=== PATIENT | male | born 1960 | race Caucasian/White ===

== ENCOUNTER 2017-05-17 09:38 | Emergency (ER) | payer OTHER ==
[~2017-05-17] VITALS: Ht 177.8 cm; Wt 99.8 kg
[~2017-05-17 09:38] MED LIST: ALLO100 PO; ALLO300 PO; Adult Low Dose81 MG PO; Advil200 M1 PO; BUPR150ER PO; CEPH500 PO; CHLO25 PO; CHOL10002 PO; COLCHICINE0.6 MG PO; COLCRYS0.6 MG PO; CYCL10 PO; FISH1000 PO; FLUO10 PO; GEMF600 PO; HEART MED; HEART PO; HTN MED; HYDACE10B PO; HYDACE5 PO; HYDR1TAB94 PO; INDO25 PO; LISI20 PO; LISI5; LISI5 PO; LORA1 PO; Levaquin500 MG PO; METO50 PO; METO50ER PO; METPRE4DP PO; NAPR500 PO; NAPR550 PO; Naproxen250 MG PO; Norco 10-325 T1 EACH PO; Norco 5-325 Ta1 EACH PO; Norco 7.5-3251 EACH PO; Oxycodone HCl20 M1 PO; POTCHL20ER PO; PROM25 PO; Percocet 5-3251 EACH PO; Prednisone10 MG PO; Prednisone20 MG PO; RANI150 PO; Robaxin-750750 MG PO; ZESTORETIC 20-121 EA; ZESTORETIC 20-121 EA PO; ZYRTEC10 M2 PO; Zantac150 MG PO
[2017-05-17] MEDS ORDERED: Celebrex200 MG PO (11:39)
[2017-05-17] MEDS ORDERED: Norco 5-325 Ta1 EACH PO (11:39)
[2017-05-17] MEDS ORDERED: Crutch1 EACH UD (11:40)
[2018-01-26] MEDS ORDERED: METPRE4DP PO (12:44)
[2018-01-26] MEDS ORDERED: Norco 5-325 Ta1 EACH PO (12:44)
[2018-01-26] MEDS ORDERED: NAPR500 PO (12:44)
== END 2017-05-17 11:47 | disposition home or self-care (01) ==
LOC: ER 09:38
DX: M10.9 Gout, unspecified (principal); Z88.8 Allergy status to other drugs, medicaments and biological substances; I10 Essential (primary) hypertension; Z87.891 Personal history of nicotine dependence
CPT/HCPCS: 73564; 96372; 99283; J1885

== ENCOUNTER 2017-06-21 10:07 | Emergency (ER) | payer OTHER ==
[~2017-06-21] VITALS: Ht 177.8 cm; Wt 105.9 kg
[~2017-06-21 10:07] MED LIST changes: +Celebrex200 MG PO; +Crutch1 EACH UD
[2017-06-21] MEDS ORDERED: Norco 5-325 Ta1 EACH PO (10:33)
[2017-06-21] MEDS ORDERED: Prednisone20 MG PO (10:33)
[2018-01-26] MEDS ORDERED: METPRE4DP PO (12:44)
[2018-01-26] MEDS ORDERED: NAPR500 PO (12:44)
[2018-01-26] MEDS ORDERED: Norco 5-325 Ta1 EACH PO (12:44)
== END 2017-06-21 10:47 | disposition home or self-care (01) ==
LOC: ER 10:07
DX: M19.012 Primary osteoarthritis, left shoulder (principal); I10 Essential (primary) hypertension; Z79.899 Other long term (current) drug therapy; Z87.891 Personal history of nicotine dependence
CPT/HCPCS: 99283

== ENCOUNTER → 2017-08-14 | Outpatient (CLI) | payer OTHER ==
[2017-08-14 09:05] LABS: BASOPHILS ABSOLUTE AUTO 0.05 K/mm3 (0.00-0.23); BASOPHILS PERCENT AUTO 1 % (0-2); EOSINOPHILS ABSOLUTE AUTO 0.07 K/mm3 (0.00-0.68); EOSINOPHILS PERCENT AUTO 1 % (0-6); Hemoglobin 15.5 g/dL (13.5-17.5); IMMATURE GRAN ABSOLUTE AUTO 0.03 K/mm3 (0.00-0.10); IMMATURE GRAN PERCENT AUTO 0 % (0-1); LYMPHOCYTES ABSOLUTE AUTO 1.84 K/mm3 (0.84-5.20); LYMPHOCYTES PERCENT AUTO 24 % (21-46); MONOCYTES PERCENT AUTO 13 % (4-13); Mean Corpuscular HGB 32.9 pg (26.0-34.0); Mean Corpuscular HGB Conc 33.7 g/dL (31.5-36.5); Mean Corpuscular Volume 98 fL (80-100); NEUTROPHILS ABSOLUTE AUTO 4.58 K/mm3 (1.96-9.15); NEUTROPHILS PERCENT AUTO 61 % (41-73); Platelet Count 144 K/mm3 (150-400); RDW Coefficient Variation 13.7 % (11.7-14.2); RDW Standard Deviation 49.1 fL (35.1-46.3); Red Blood Cell Count 4.71 M/mm3 (4.30-5.90); White Blood Cell Count 7.57 K/mm3 (4.00-11.30)
[2017-08-14 09:24] LABS: Alanine Aminotransfer (ALT/SGP 185 U/L (12-78); Albumin, Blood 3.9 g/dL (3.4-5.0); Alk Phos 59 U/L (40-126); Anion Gap 8 mmol/L (6-16); Aspartate Aminotrans (AST/SGOT 117 U/L (12-37); Blood Urea Nitrogen 10 mg/dL (8-24); Bun/Creatinine Ratio 9.3 (12.0-20.0); CO2, Blood 31 mmol/L (21-32); Calcium, Blood 9.9 mg/dL (8.5-10.1); Chloride, Blood 105 mmol/L (98-108); Creatinine, Blood 1.08 mg/dL (0.60-1.20); Globulin, Blood 3.8 g/dL (2.2-4.0); Glomerular Filtration Rate >60 (60-); Glucose, Blood 96 mg/dL (70-99); Sodium, Blood 144 mmol/L (136-145); Total Protein, Blood 7.7 g/dL (6.4-8.2); Uric Acid, Blood 9.7 mg/dL (3.5-7.2)
== END | disposition home or self-care (01) ==
LOC: LAB EV 09:01 → LAB SHORT 09:01
PROVIDERS: General Practice
DX: M25.562 Pain in left knee (principal)
CPT/HCPCS: 80053; 84550; 85025; 85651

== ENCOUNTER 2017-11-10 21:40 | Emergency (ER) | payer OTHER ==
[~2017-11-10] VITALS: Ht 180.3 cm; Wt 106.6 kg
[2017-11-10 22:53] LABS: BASOPHILS ABSOLUTE AUTO 0.02 K/mm3 (0.00-0.23); BASOPHILS PERCENT AUTO 0 % (0-2); EOSINOPHILS ABSOLUTE AUTO 0.18 K/mm3 (0.00-0.68); EOSINOPHILS PERCENT AUTO 3 % (0-6); Hematocrit 44.3 % (37.0-53.0); Hemoglobin 14.7 g/dL (13.5-17.5); IMMATURE GRAN ABSOLUTE AUTO 0.02 K/mm3 (0.00-0.10); IMMATURE GRAN PERCENT AUTO 0 % (0-1); LYMPHOCYTES ABSOLUTE AUTO 1.82 K/mm3 (0.84-5.20); LYMPHOCYTES PERCENT AUTO 26 % (21-46); MONOCYTES PERCENT AUTO 10 % (4-13); Mean Corpuscular HGB 32.6 pg (26.0-34.0); Mean Corpuscular HGB Conc 33.2 g/dL (31.5-36.5); Mean Corpuscular Volume 98 fL (80-100); NEUTROPHILS ABSOLUTE AUTO 4.17 K/mm3 (1.96-9.15); NEUTROPHILS PERCENT AUTO 60 % (41-73); Platelet Count 145 K/mm3 (150-400); RDW Coefficient Variation 14.4 % (11.7-14.2); RDW Standard Deviation 51.7 fL (35.1-46.3); Red Blood Cell Count 4.51 M/mm3 (4.30-5.90); White Blood Cell Count 6.91 K/mm3 (4.00-11.30)
[2017-11-10 23:13] LABS: Alanine Aminotransfer (ALT/SGP 52 U/L (12-78); Albumin, Blood 3.8 g/dL (3.4-5.0); Albumin/Globulin Ratio 1.1 (0.8-1.8); Alk Phos 63 U/L (50-136); Anion Gap 7 mmol/L (6-16); Aspartate Aminotrans (AST/SGOT 44 U/L (12-37); Bilirubin, Total 0.7 mg/dL (0.1-1.0); Blood Urea Nitrogen 16 mg/dL (8-24); Bun/Creatinine Ratio 13.9 (12.0-20.0); CO2, Blood 29 mmol/L (21-32); Calcium, Blood 8.9 mg/dL (8.5-10.1); Chloride, Blood 107 mmol/L (98-108); Creatinine, Blood 1.15 mg/dL (0.60-1.20); Globulin, Blood 3.5 g/dL (2.2-4.0); Glomerular Filtration Rate >60 (60-); Glucose, Blood 94 mg/dL (70-99); Potassium, Blood 4.1 mmol/L (3.5-5.5); Sodium, Blood 143 mmol/L (136-145); Total Protein, Blood 7.3 g/dL (6.4-8.2); Troponin I <0.015 ng/mL (0.000-0.040)
[2017-11-11] MEDS ORDERED: NAPR500 PO (01:11)
[2017-11-11] MEDS ORDERED: Lasix20 MG PO (01:11)
[2017-11-11] MEDS ORDERED: POTCHL20ER PO (01:11)
== END 2017-11-11 01:27 | disposition home or self-care (01) ==
LOC: ER 21:40
PROVIDERS: Emergency Medicine
DX: M10.9 Gout, unspecified (principal); I10 Essential (primary) hypertension; Z79.899 Other long term (current) drug therapy; Z87.891 Personal history of nicotine dependence
CPT/HCPCS: 36415; 80053; 83880; 84484; 84550; 85025; 93005; 93010; 99283

== ENCOUNTER 2017-12-22 09:21 | Emergency (ER) | payer OTHER ==
[~2017-12-22] VITALS: Ht 180.3 cm; Wt 104.3 kg
[~2017-12-22 09:21] MED LIST changes: +Lasix20 MG PO
[2017-12-22] MEDS ORDERED: ALLO100 PO (09:51)
[2017-12-22] MEDS ORDERED: Prednisone50 MG PO (11:52)
[2017-12-22] MEDS ORDERED: Naprosyn500 MG PO (11:52)
[2017-12-22] MEDS ORDERED: Norco 5-325 Ta1 EACH PO (11:52)
== END 2017-12-22 11:56 | disposition home or self-care (01) ==
LOC: ER 09:21
DX: M10.9 Gout, unspecified (principal); I10 Essential (primary) hypertension; F17.220 Nicotine dependence, chewing tobacco, uncomplicated; Z79.899 Other long term (current) drug therapy
CPT/HCPCS: 73130; 99283-25

== ENCOUNTER 2018-08-01 10:20 | Emergency (ER) | payer OTHER ==
[~2018-08-01] VITALS: Ht 180.3 cm; Wt 102.1 kg
[~2018-08-01 10:20] MED LIST changes: +Naprosyn500 MG PO; +Prednisone50 MG PO
[2018-08-01 11:14] LABS: BASOPHILS ABSOLUTE AUTO 0.06 K/mm3 (0.00-0.23); BASOPHILS PERCENT AUTO 1 % (0-2); EOSINOPHILS ABSOLUTE AUTO 0.12 K/mm3 (0.00-0.68); EOSINOPHILS PERCENT AUTO 1 % (0-6); Hematocrit 44.5 % (37.0-53.0); Hemoglobin 14.4 g/dL (13.5-17.5); IMMATURE GRAN ABSOLUTE AUTO 0.04 K/mm3 (0.00-0.10); IMMATURE GRAN PERCENT AUTO 0 % (0-1); LYMPHOCYTES ABSOLUTE AUTO 2.29 K/mm3 (0.84-5.20); LYMPHOCYTES PERCENT AUTO 21 % (21-46); MONOCYTES ABSOLUTE AUTO 0.94 K/mm3 (0.16-1.47); MONOCYTES PERCENT AUTO 8 % (4-13); Mean Corpuscular HGB 30.7 pg (26.0-34.0); Mean Corpuscular HGB Conc 32.4 g/dL (31.5-36.5); Mean Corpuscular Volume 95 fL (80-100); Mean Platelet Volume 9.8 fL (9.1-12.4); NEUTROPHILS ABSOLUTE AUTO 7.74 K/mm3 (1.96-9.15); NEUTROPHILS PERCENT AUTO 69 % (41-73); Platelet Count 393 K/mm3 (150-400); Red Blood Cell Count 4.69 M/mm3 (4.30-5.90); White Blood Cell Count 11.19 K/mm3 (4.00-11.30)
[2018-08-01 11:45] LABS: Alanine Aminotransfer (ALT/SGP 30 U/L (12-78); Albumin, Blood 3.1 g/dL (3.4-5.0); Albumin/Globulin Ratio 0.6 (0.8-1.8); Alk Phos 85 U/L (50-136); Anion Gap 5 mmol/L (6-16); Aspartate Aminotrans (AST/SGOT 24 U/L (12-37); Bilirubin, Total 0.7 mg/dL (0.1-1.0); Blood Urea Nitrogen 10 mg/dL (8-24); Bun/Creatinine Ratio 10.7 (12.0-20.0); CO2, Blood 30 mmol/L (21-32); Calcium, Blood 9.3 mg/dL (8.5-10.1); Chloride, Blood 101 mmol/L (98-108); Creatinine, Blood 0.93 mg/dL (0.60-1.20); Globulin, Blood 5.6 g/dL (2.2-4.0); Glomerular Filtration Rate >60 (60-); Glucose, Blood 113 mg/dL (70-99); Potassium, Blood 3.8 mmol/L (3.5-5.5); Sodium, Blood 136 mmol/L (136-145); Total Protein, Blood 8.7 g/dL (6.4-8.2); Uric Acid, Blood 6.2 mg/dL (3.5-7.2)
[2018-08-01] MEDS ORDERED: COLCHICINE0.6 MG PO (12:46)
[2018-08-01] MEDS ORDERED: Norco 5-325 Ta1 EACH PO (13:07)
== END 2018-08-01 13:12 | disposition home or self-care (01) ==
LOC: ER 10:20
PROVIDERS: Internal Medicine
DX: M10.9 Gout, unspecified (principal); Z79.899 Other long term (current) drug therapy; Z79.52 Long term (current) use of systemic steroids; I10 Essential (primary) hypertension; Z87.891 Personal history of nicotine dependence
CPT/HCPCS: 36415; 80053; 84550; 85025; 96374; 99283-25; J1885

== ENCOUNTER → 2018-08-17 | Outpatient (CLI) | payer OTHER ==
[2018-08-17 20:07] LABS: Anion Gap 5 mmol/L (6-16); Blood Urea Nitrogen 13 mg/dL (8-24); Bun/Creatinine Ratio 15.1 (12.0-20.0); CO2, Blood 32 mmol/L (21-32); Chloride, Blood 103 mmol/L (98-108); Creatinine, Blood 0.86 mg/dL (0.60-1.20); Glomerular Filtration Rate >60 (60-); Glucose, Blood 98 mg/dL (70-99); Potassium, Blood 3.5 mmol/L (3.5-5.5); Sodium, Blood 140 mmol/L (136-145); Uric Acid, Blood 4.9 mg/dL (3.5-7.2)
== END | disposition home or self-care (01) ==
LOC: LAB 19:36 → LAB SHORT 19:36
PROVIDERS: Physician Assistant
DX: M10.9 Gout, unspecified (principal)
CPT/HCPCS: 80048; 84550

== ENCOUNTER 2018-11-27 09:08 | Emergency (ER) | payer OTHER ==
[~2018-11-27] VITALS: Ht 180.3 cm; Wt 99.8 kg
[2018-11-27] MEDS ORDERED: LISI20 PO (09:28)
[2018-11-27] MEDS ORDERED: METO100 PO (09:28)
[2018-11-27] MEDS ORDERED: ALLO100 PO (09:28)
[2018-11-27] MEDS ORDERED: Prednisone20 MG PO (10:06)
[2018-11-27] MEDS ORDERED: Naprosyn500 MG PO (10:06)
[2018-11-27] MEDS ORDERED: Norco 7.5-3251 EACH PO (10:06)
== END 2018-11-27 10:17 | disposition home or self-care (01) ==
LOC: ER 09:08
DX: M10.9 Gout, unspecified (principal); Z79.899 Other long term (current) drug therapy; I10 Essential (primary) hypertension; Z87.891 Personal history of nicotine dependence
CPT/HCPCS: 99283

== ENCOUNTER → 2018-12-03 | Outpatient (CLI) | payer OTHER ==
[~2018-12-03] MED LIST changes: +METO100 PO
[2018-12-03 12:11] LABS: Alanine Aminotransfer (ALT/SGP 68 U/L (12-78); Albumin/Globulin Ratio 1.1 (0.8-1.8); Alk Phos 85 U/L (50-136); Anion Gap 5 mmol/L (6-16); Aspartate Aminotrans (AST/SGOT 42 U/L (12-37); Bilirubin, Total 0.4 mg/dL (0.1-1.0); Blood Urea Nitrogen 9 mg/dL (8-24); Bun/Creatinine Ratio 9.2 (12.0-20.0); CO2, Blood 27 mmol/L (21-32); Calcium, Blood 9.4 mg/dL (8.5-10.1); Chloride, Blood 108 mmol/L (98-108); Creatinine, Blood 0.98 mg/dL (0.60-1.20); Globulin, Blood 3.5 g/dL (2.2-4.0); Glomerular Filtration Rate >60 (60-); Glucose, Blood 103 mg/dL (70-99); Potassium, Blood 4.6 mmol/L (3.5-5.5); Sodium, Blood 140 mmol/L (136-145); Total Protein, Blood 7.5 g/dL (6.4-8.2); Uric Acid, Blood 5.4 mg/dL (3.5-7.2)
== END | disposition home or self-care (01) ==
LOC: LAB SHORT 11:33 → LAB 11:33
PROVIDERS: Internal Medicine Rheumatology
DX: M10.9 Gout, unspecified (principal)
CPT/HCPCS: 80053; 84550

== ENCOUNTER → 2019-11-02 | Outpatient (CLI) | payer OTHER | END | disposition home or self-care (01) | LOC: LAB SHORT 16:45 → LAB 16:45 | DX: T81.41XA Infection following a procedure, superficial incisional surgical site, initial encounter (principal) | CPT/HCPCS: 87070; 87075; 87077; 87147; 87186; 87205 ==

== ENCOUNTER → 2019-11-23 | Outpatient (CLI) | payer OTHER ==
[~2019-11-23] MED LIST changes: +INDO50 PO
== END | disposition home or self-care (01) ==
LOC: LAB 12:27 → LAB SHORT 12:27
DX: A49.01 Methicillin susceptible Staphylococcus aureus infection, unspecified site (principal)
CPT/HCPCS: 87070; 87205

== ENCOUNTER 2020-03-20 08:37 | Day surgery (SDC) | payer OTHER ==
[~2020-03-20] VITALS: Wt 105.5 kg
[2020-03-20] MEDS ORDERED: TRAM50 PO (09:47)
--- NOTE | 2020-03-20 10:11 | NUR ---
03/20/20 Pako1 Yasmin Haynes History, Chart, Medications and Allergies reviewed before start of procedure. Patient confirms NPO status and agrees with scheduled surgery. PATIENT DETERMINED TO BE ASA APPROPRIATE FOR PROPOFOL SEDATION PRIOR TO START OF PROCEDURE BY DR. BRITTON. MONITOR INTACT WITH CONTINUOUS PULSE OXIMETRY AND INTERMITTENT BP. 3-LEAD EKG REVIEWED WITH PHYSICIAN PRIOR TO START OF PROCEDURE.
--- NOTE | 2020-03-20 10:47 | NUR ---
PT ARRIVED TO RECOVERY AREA, A/O X 4, PLEASANT/COOPERATIVE, DENIES N/V, DENIES PAIN. VSS. DR BRITTON ROUNDED ON PT AND GAVE INSTRUCTION. REMOVED PERIPHERAL IV WNL, PROVIDED PT WITH APPLE JUICE. PT STATES HIS RIDE IS WAITING OUTSIDE
== END 2020-03-20 23:46 | disposition home or self-care (01) ==
LOC: ORSCMMR 08:37 → ORD 09:30 → ORSCMMR 09:30
PROVIDERS: Internal Medicine Gastroenterology
PROC: 0DBP8ZX Excision of Rectum, Via Natural or Artificial Opening Endoscopic, Diagnostic (ICD-10-PCS; principal; 2020-03-20 09:30)
PROC: 0DBN8ZX Excision of Sigmoid Colon, Via Natural or Artificial Opening Endoscopic, Diagnostic (ICD-10-PCS; principal; 2020-03-20 09:30)
PROC: 0DBK8ZX Excision of Ascending Colon, Via Natural or Artificial Opening Endoscopic, Diagnostic (ICD-10-PCS; principal; 2020-03-20 09:30)
DX: Z12.11 Encounter for screening for malignant neoplasm of colon (principal); D12.2 Benign neoplasm of ascending colon; D12.5 Benign neoplasm of sigmoid colon; D12.8 Benign neoplasm of rectum; K63.5 Polyp of colon; I10 Essential (primary) hypertension; Z79.899 Other long term (current) drug therapy
CPT/HCPCS: 88305; J2250; J2704; J7120

== ENCOUNTER 2020-07-01 11:05 | Emergency (ER) | payer OTHER ==
[~2020-07-01] VITALS: Ht 177.8 cm; Wt 104.3 kg
[~2020-07-01 11:05] MED LIST changes: +TRAM50 PO
[2020-07-01 12:00] LABS: Calcium, Ionized (POC) 1.09 mmol/L (1.10-1.46); Chloride (POC) 101 mmol/L (98-108); Creatinine (POC) 0.9 mg/dL (0.8-1.3); Glucose (ISTAT POC) 91 mg/dL (70-99); Hemoglobin (POC) 16.3 g/dL (13.5-17.5); Potassium (POC) 3.8 mmol/L (3.5-5.5); Sodium (POC) 136 mmol/L (135-148); Total CO2 (POC) 29 mmol/L (21-32)
[2020-07-01] MEDS ORDERED: Naprosyn500 MG PO (13:08)
[2020-07-01] MEDS ORDERED: Percocet 5-3251 EACH PO (13:08)
== END 2020-07-01 13:15 | disposition home or self-care (01) ==
LOC: ER 11:05
PROVIDERS: Emergency Medicine
DX: M10.9 Gout, unspecified (principal); I10 Essential (primary) hypertension; Z79.899 Other long term (current) drug therapy; Z87.891 Personal history of nicotine dependence
CPT/HCPCS: 73562-RT; 80047; 84550; 85014; 96372; 99283-25; A9270; J1885

== ENCOUNTER 2021-08-22 12:24 | Emergency (ER) | payer OTHER ==
[~2021-08-22] VITALS: Ht 180.3 cm; Wt 106.1 kg
[2021-08-22] MEDS ORDERED: OXYC5 PO (12:38)
[2021-08-22] MEDS ORDERED: CEPH500 PO (12:38)
[2021-08-22] MEDS ORDERED: BUPROPION XL150 M1 PO (12:39)
[2021-08-22] MEDS ORDERED: DONEPEZIL HCL10 M1 PO (12:39)
[2021-08-22 13:58] LABS: BASOPHILS ABSOLUTE AUTO 0.02 K/mm3 (0.00-0.23); BASOPHILS PERCENT AUTO 0 % (0-2); EOSINOPHILS ABSOLUTE AUTO 0.08 K/mm3 (0.00-0.68); EOSINOPHILS PERCENT AUTO 1 % (0-6); Hematocrit 40.5 % (37.0-53.0); Hemoglobin 13.4 g/dL (13.5-17.5); IMMATURE GRAN ABSOLUTE AUTO 0.04 K/mm3 (0.00-0.10); IMMATURE GRAN PERCENT AUTO 0 % (0-1); LYMPHOCYTES ABSOLUTE AUTO 1.83 K/mm3 (0.84-5.20); LYMPHOCYTES PERCENT AUTO 14 % (21-46); MONOCYTES ABSOLUTE AUTO 1.47 K/mm3 (0.16-1.47); MONOCYTES PERCENT AUTO 11 % (4-13); Mean Corpuscular HGB 30.1 pg (26.0-34.0); Mean Corpuscular HGB Conc 33.1 g/dL (31.5-36.5); Mean Corpuscular Volume 91 fL (80-100); Mean Platelet Volume 10.4 fL (9.1-12.4); NEUTROPHILS ABSOLUTE AUTO 9.59 K/mm3 (1.96-9.15); NEUTROPHILS PERCENT AUTO 74 % (41-73); Platelet Count 219 K/mm3 (150-400); RDW Standard Deviation 47.4 fL (35.1-46.3); Red Blood Cell Count 4.45 M/mm3 (4.30-5.90); White Blood Cell Count 13.03 K/mm3 (4.00-11.30)
[2021-08-22 14:24] LABS: Alanine Aminotransfer (ALT/SGP 25 U/L (12-78); Albumin, Blood 3.6 g/dL (3.4-5.0); Albumin/Globulin Ratio 0.9 (0.8-1.8); Alk Phos 58 U/L (50-136); Anion Gap 12 mmol/L (6-16); Aspartate Aminotrans (AST/SGOT 26 U/L (12-37); Bilirubin, Total 0.7 mg/dL (0.1-1.0); Blood Urea Nitrogen 12 mg/dL (8-24); Bun/Creatinine Ratio 11.3 (12.0-20.0); CO2, Blood 24 mmol/L (21-32); Calcium, Blood 9.3 mg/dL (8.5-10.1); Chloride, Blood 103 mmol/L (98-108); Creatinine, Blood 1.06 mg/dL (0.60-1.20); Globulin, Blood 3.8 g/dL (2.2-4.0); Glomerular Filtration Rate >60 (60-); Glucose, Blood 109 mg/dL (70-99); Potassium, Blood 3.3 mmol/L (3.5-5.5); Sodium, Blood 139 mmol/L (136-145); Total Protein, Blood 7.4 g/dL (6.4-8.2)
== END 2021-08-22 16:04 | disposition home or self-care (01) ==
LOC: ER 12:24
PROVIDERS: Physician Assistant
DX: T81.49XA Infection following a procedure, other surgical site, initial encounter (principal); L02.11 Cutaneous abscess of neck; I10 Essential (primary) hypertension; Z79.899 Other long term (current) drug therapy
CPT/HCPCS: 36415; 70491; 80053; 85025; 99284-25; A9270; Q9967

== ENCOUNTER 2021-08-29 02:20 | Day surgery (SDC) | payer OTHER ==
[~2021-08-29 02:20] MED LIST changes: +BUPROPION XL150 M1 PO; +DONEPEZIL HCL10 M1 PO; +OXYC5 PO
[2021-08-31] MEDS ORDERED: CUBICIN RF500 M1 IV (12:36)
== END 2021-08-29 15:25 | disposition home or self-care (01) ==
LOC: ATC 02:20
DX: T81.49XA Infection following a procedure, other surgical site, initial encounter (principal); B95.62 Methicillin resistant Staphylococcus aureus infection as the cause of diseases classified elsewhere
CPT/HCPCS: 96365; J0878

== ENCOUNTER 2021-08-30 01:00 | Day surgery (SDC) | payer OTHER ==
[2021-08-31] MEDS ORDERED: CUBICIN RF500 M1 IV (12:36)
== END 2021-08-30 10:50 | disposition home or self-care (01) ==
LOC: ATC 01:00
DX: L08.9 Local infection of the skin and subcutaneous tissue, unspecified (principal); B95.62 Methicillin resistant Staphylococcus aureus infection as the cause of diseases classified elsewhere
CPT/HCPCS: 96365; J0878

== ENCOUNTER 2021-09-01 01:08 | Day surgery (SDC) | payer OTHER ==
[~2021-09-01 01:08] MED LIST changes: +CUBICIN RF500 M1 IV
== END 2021-09-01 11:15 | disposition home or self-care (01) ==
LOC: ATC 01:08
DX: T81.41XA Infection following a procedure, superficial incisional surgical site, initial encounter (principal); B95.62 Methicillin resistant Staphylococcus aureus infection as the cause of diseases classified elsewhere
CPT/HCPCS: 96374; J0878

== ENCOUNTER 2021-09-02 13:36 | Day surgery (SDC) | payer OTHER | END 2021-09-02 14:20 | disposition home or self-care (01) | LOC: ATC 13:36 | DX: T81.41XA Infection following a procedure, superficial incisional surgical site, initial encounter (principal); B95.62 Methicillin resistant Staphylococcus aureus infection as the cause of diseases classified elsewhere; Y83.8 Other surgical procedures as the cause of abnormal reaction of the patient, or of later complication, without mention of misadventure at the time of the procedure; I10 Essential (primary) hypertension; Z98.1 Arthrodesis status | CPT/HCPCS: 96365; J0878 ==

== ENCOUNTER 2021-09-03 01:35 | Day surgery (SDC) | payer OTHER | END 2021-09-03 10:46 | disposition home or self-care (01) | LOC: ATC 01:35 | DX: T81.41XA Infection following a procedure, superficial incisional surgical site, initial encounter (principal); B95.62 Methicillin resistant Staphylococcus aureus infection as the cause of diseases classified elsewhere; Y83.8 Other surgical procedures as the cause of abnormal reaction of the patient, or of later complication, without mention of misadventure at the time of the procedure; I10 Essential (primary) hypertension; Z98.1 Arthrodesis status | CPT/HCPCS: 96365; J0878 ==

== ENCOUNTER 2021-09-04 01:43 | Day surgery (SDC) | payer OTHER ==
[2021-09-04 10:50] LABS: BASOPHILS ABSOLUTE AUTO 0.05 K/mm3 (0.00-0.23); BASOPHILS PERCENT AUTO 1 % (0-2); EOSINOPHILS ABSOLUTE AUTO 0.09 K/mm3 (0.00-0.68); EOSINOPHILS PERCENT AUTO 1 % (0-6); Hematocrit 39.1 % (37.0-53.0); Hemoglobin 13.1 g/dL (13.5-17.5); IMMATURE GRAN ABSOLUTE AUTO 0.02 K/mm3 (0.00-0.10); IMMATURE GRAN PERCENT AUTO 0 % (0-1); LYMPHOCYTES ABSOLUTE AUTO 1.92 K/mm3 (0.84-5.20); LYMPHOCYTES PERCENT AUTO 22 % (21-46); MONOCYTES ABSOLUTE AUTO 0.68 K/mm3 (0.16-1.47); MONOCYTES PERCENT AUTO 8 % (4-13); Mean Corpuscular HGB 30.1 pg (26.0-34.0); Mean Corpuscular HGB Conc 33.5 g/dL (31.5-36.5); Mean Corpuscular Volume 90 fL (80-100); Mean Platelet Volume 9.9 fL (9.1-12.4); NEUTROPHILS ABSOLUTE AUTO 6.18 K/mm3 (1.96-9.15); NEUTROPHILS PERCENT AUTO 69 % (41-73); Platelet Count 367 K/mm3 (150-400); RDW Coefficient Variation 13.7 % (11.7-14.2); RDW Standard Deviation 45.6 fL (35.1-46.3); Red Blood Cell Count 4.35 M/mm3 (4.30-5.90); White Blood Cell Count 8.94 K/mm3 (4.00-11.30)
[2021-09-04 11:21] LABS: Anion Gap 2 mmol/L (6-16); Blood Urea Nitrogen 11 mg/dL (8-24); Bun/Creatinine Ratio 10.5 (12.0-20.0); CO2, Blood 33 mmol/L (21-32); CPK Creatine Kinase 155 U/L (39-308); Chloride, Blood 106 mmol/L (98-108); Creatinine, Blood 1.05 mg/dL (0.60-1.20); Glomerular Filtration Rate >60 (60-); Glucose, Blood 93 mg/dL (70-99); Potassium, Blood 3.9 mmol/L (3.5-5.5); Sodium, Blood 141 mmol/L (136-145)
== END 2021-09-04 11:19 | disposition home or self-care (01) ==
LOC: ATC 01:43
PROVIDERS: Neurological Surgery
DX: T81.41XA Infection following a procedure, superficial incisional surgical site, initial encounter (principal); B95.62 Methicillin resistant Staphylococcus aureus infection as the cause of diseases classified elsewhere; Y83.8 Other surgical procedures as the cause of abnormal reaction of the patient, or of later complication, without mention of misadventure at the time of the procedure; M10.9 Gout, unspecified; I10 Essential (primary) hypertension; Z98.1 Arthrodesis status
CPT/HCPCS: 80048; 82550; 85025; 86140; J0878

== ENCOUNTER 2021-09-05 02:50 | Day surgery (SDC) | payer OTHER | END 2021-09-05 11:44 | disposition home or self-care (01) | LOC: ATC 02:50 | DX: L08.89 Other specified local infections of the skin and subcutaneous tissue (principal) | CPT/HCPCS: 96365; J0878 ==

== ENCOUNTER 2021-09-06 00:27 | Day surgery (SDC) | payer OTHER | END 2021-09-06 11:23 | disposition home or self-care (01) | LOC: ATC 00:27 | DX: L08.9 Local infection of the skin and subcutaneous tissue, unspecified (principal); B95.62 Methicillin resistant Staphylococcus aureus infection as the cause of diseases classified elsewhere | CPT/HCPCS: 96365; J0878 ==

== ENCOUNTER 2021-09-07 00:52 | Day surgery (SDC) | payer OTHER | END 2021-09-07 10:22 | disposition home or self-care (01) | LOC: ATC 00:52 | DX: T81.41XA Infection following a procedure, superficial incisional surgical site, initial encounter (principal); B95.62 Methicillin resistant Staphylococcus aureus infection as the cause of diseases classified elsewhere; I10 Essential (primary) hypertension; M10.9 Gout, unspecified; Y83.8 Other surgical procedures as the cause of abnormal reaction of the patient, or of later complication, without mention of misadventure at the time of the procedure | CPT/HCPCS: 96365; J0878 ==

== ENCOUNTER 2021-09-08 04:20 | Day surgery (SDC) | payer OTHER | END 2021-09-08 10:13 | disposition home or self-care (01) | LOC: ATC 04:20 | DX: T81.41XA Infection following a procedure, superficial incisional surgical site, initial encounter (principal) | CPT/HCPCS: 96365; J0878 ==

== ENCOUNTER 2021-09-10 01:23 | Day surgery (SDC) | payer OTHER | END 2021-09-10 10:25 | disposition home or self-care (01) | LOC: ATC 01:23 | DX: L08.9 Local infection of the skin and subcutaneous tissue, unspecified (principal); B95.62 Methicillin resistant Staphylococcus aureus infection as the cause of diseases classified elsewhere | CPT/HCPCS: 96365; J0878 ==

== ENCOUNTER 2021-09-12 00:58 | Day surgery (SDC) | payer OTHER ==
[2021-09-12 10:17] LABS: BASOPHILS ABSOLUTE AUTO 0.05 K/mm3 (0.00-0.23); BASOPHILS PERCENT AUTO 1 % (0-2); EOSINOPHILS ABSOLUTE AUTO 0.14 K/mm3 (0.00-0.68); EOSINOPHILS PERCENT AUTO 2 % (0-6); Hematocrit 38.5 % (37.0-53.0); Hemoglobin 12.5 g/dL (13.5-17.5); IMMATURE GRAN ABSOLUTE AUTO 0.02 K/mm3 (0.00-0.10); IMMATURE GRAN PERCENT AUTO 0 % (0-1); LYMPHOCYTES ABSOLUTE AUTO 1.98 K/mm3 (0.84-5.20); LYMPHOCYTES PERCENT AUTO 24 % (21-46); MONOCYTES ABSOLUTE AUTO 0.65 K/mm3 (0.16-1.47); MONOCYTES PERCENT AUTO 8 % (4-13); Mean Corpuscular HGB 29.6 pg (26.0-34.0); Mean Corpuscular HGB Conc 32.5 g/dL (31.5-36.5); Mean Corpuscular Volume 91 fL (80-100); Mean Platelet Volume 10.6 fL (9.1-12.4); NEUTROPHILS ABSOLUTE AUTO 5.32 K/mm3 (1.96-9.15); NEUTROPHILS PERCENT AUTO 65 % (41-73); Platelet Count 271 K/mm3 (150-400); RDW Coefficient Variation 13.8 % (11.7-14.2); RDW Standard Deviation 46.2 fL (35.1-46.3); Red Blood Cell Count 4.22 M/mm3 (4.30-5.90); White Blood Cell Count 8.16 K/mm3 (4.00-11.30)
[2021-09-12 10:48] LABS: Anion Gap 5 mmol/L (6-16); Blood Urea Nitrogen 14 mg/dL (8-24); C-REACTIVE PROTEIN, EXT RANGE 0.488 mg/dL (0.000-0.300); CO2, Blood 32 mmol/L (21-32); CPK Creatine Kinase 157 U/L (39-308); Calcium, Blood 9.4 mg/dL (8.5-10.1); Chloride, Blood 106 mmol/L (98-108); Creatine Kinase MB 1.9 ng/mL (0.0-3.6); Creatine Kinase MB Index 1.2 (0.0-4.0); Glomerular Filtration Rate >60 (60-); Glucose, Blood 91 mg/dL (70-99); Sodium, Blood 143 mmol/L (136-145)
== END 2021-09-12 10:24 | disposition home or self-care (01) ==
LOC: ATC 00:58
PROVIDERS: Transplant Surgery
DX: T81.41XA Infection following a procedure, superficial incisional surgical site, initial encounter (principal); M46.32 Infection of intervertebral disc (pyogenic), cervical region; B95.62 Methicillin resistant Staphylococcus aureus infection as the cause of diseases classified elsewhere; I10 Essential (primary) hypertension; M10.9 Gout, unspecified
CPT/HCPCS: 80048; 82550; 82553; 85025; 86140; 96365; J0878

== ENCOUNTER 2021-09-15 00:36 | Day surgery (SDC) | payer OTHER | END 2021-09-15 10:47 | disposition home or self-care (01) | LOC: ATC 00:36 | DX: T81.41XA Infection following a procedure, superficial incisional surgical site, initial encounter (principal); I10 Essential (primary) hypertension; B95.62 Methicillin resistant Staphylococcus aureus infection as the cause of diseases classified elsewhere; Z98.1 Arthrodesis status | CPT/HCPCS: J0878 ==

== ENCOUNTER 2021-09-16 09:45 | Day surgery (SDC) | payer OTHER | END 2021-09-16 10:27 | disposition home or self-care (01) | LOC: ATC 09:45 | DX: T81.41XA Infection following a procedure, superficial incisional surgical site, initial encounter (principal); B95.62 Methicillin resistant Staphylococcus aureus infection as the cause of diseases classified elsewhere; I10 Essential (primary) hypertension; M10.9 Gout, unspecified; Y83.8 Other surgical procedures as the cause of abnormal reaction of the patient, or of later complication, without mention of misadventure at the time of the procedure | CPT/HCPCS: 96365; J0878 ==

== ENCOUNTER 2021-09-17 01:09 | Day surgery (SDC) | payer OTHER | END 2021-09-17 10:34 | disposition home or self-care (01) | LOC: ATC 01:09 | DX: I80.8 Phlebitis and thrombophlebitis of other sites (principal); S11.20 Unspecified open wound of pharynx and cervical esophagus | CPT/HCPCS: 96365; J0878 ==

== ENCOUNTER 2021-09-18 01:13 | Day surgery (SDC) | payer OTHER | END 2021-09-18 09:55 | disposition home or self-care (01) | LOC: ATC 01:13 | DX: T81.41XA Infection following a procedure, superficial incisional surgical site, initial encounter (principal); B95.62 Methicillin resistant Staphylococcus aureus infection as the cause of diseases classified elsewhere; I10 Essential (primary) hypertension; M10.9 Gout, unspecified; Y83.8 Other surgical procedures as the cause of abnormal reaction of the patient, or of later complication, without mention of misadventure at the time of the procedure | CPT/HCPCS: 96365; J0878 ==

== ENCOUNTER 2021-09-19 00:25 | Day surgery (SDC) | payer OTHER ==
[2021-09-19 11:12] LABS: BASOPHILS ABSOLUTE AUTO 0.03 K/mm3 (0.00-0.23); BASOPHILS PERCENT AUTO 0 % (0-2); EOSINOPHILS ABSOLUTE AUTO 0.15 K/mm3 (0.00-0.68); EOSINOPHILS PERCENT AUTO 2 % (0-6); Hematocrit 39.7 % (37.0-53.0); Hemoglobin 12.8 g/dL (13.5-17.5); IMMATURE GRAN ABSOLUTE AUTO 0.01 K/mm3 (0.00-0.10); IMMATURE GRAN PERCENT AUTO 0 % (0-1); LYMPHOCYTES PERCENT AUTO 24 % (21-46); MONOCYTES ABSOLUTE AUTO 0.56 K/mm3 (0.16-1.47); MONOCYTES PERCENT AUTO 8 % (4-13); Mean Corpuscular HGB 29.2 pg (26.0-34.0); Mean Corpuscular HGB Conc 32.2 g/dL (31.5-36.5); Mean Corpuscular Volume 91 fL (80-100); Mean Platelet Volume 10.7 fL (9.1-12.4); NEUTROPHILS ABSOLUTE AUTO 4.37 K/mm3 (1.96-9.15); NEUTROPHILS PERCENT AUTO 65 % (41-73); Platelet Count 234 K/mm3 (150-400); RDW Coefficient Variation 13.9 % (11.7-14.2); Red Blood Cell Count 4.38 M/mm3 (4.30-5.90); White Blood Cell Count 6.72 K/mm3 (4.00-11.30)
[2021-09-19 11:46] LABS: Anion Gap 6 mmol/L (6-16); Blood Urea Nitrogen 10 mg/dL (8-24); Bun/Creatinine Ratio 10.5 (12.0-20.0); C-REACTIVE PROTEIN, EXT RANGE <0.290 mg/dL (0.000-0.300); CO2, Blood 29 mmol/L (21-32); CPK Creatine Kinase 168 U/L (39-308); Calcium, Blood 9.6 mg/dL (8.5-10.1); Chloride, Blood 108 mmol/L (98-108); Creatinine, Blood 0.95 mg/dL (0.60-1.20); Glomerular Filtration Rate >60 (60-); Glucose, Blood 93 mg/dL (70-99); Potassium, Blood 3.8 mmol/L (3.5-5.5); Sodium, Blood 143 mmol/L (136-145)
== END 2021-09-19 11:00 | disposition home or self-care (01) ==
LOC: ATC 00:25
PROVIDERS: Internal Medicine
DX: T81.41XA Infection following a procedure, superficial incisional surgical site, initial encounter (principal); B95.62 Methicillin resistant Staphylococcus aureus infection as the cause of diseases classified elsewhere; I10 Essential (primary) hypertension; M10.9 Gout, unspecified; Y83.8 Other surgical procedures as the cause of abnormal reaction of the patient, or of later complication, without mention of misadventure at the time of the procedure
CPT/HCPCS: 80048; 82550; 85025; 86140; 96365; J0878

== ENCOUNTER 2021-09-21 00:12 | Day surgery (SDC) | payer OTHER | END 2021-09-21 10:33 | disposition home or self-care (01) | LOC: ATC 00:12 | DX: T81.49XA Infection following a procedure, other surgical site, initial encounter (principal); B95.62 Methicillin resistant Staphylococcus aureus infection as the cause of diseases classified elsewhere; Y83.8 Other surgical procedures as the cause of abnormal reaction of the patient, or of later complication, without mention of misadventure at the time of the procedure; I10 Essential (primary) hypertension; Z79.899 Other long term (current) drug therapy | CPT/HCPCS: 96365; J0878 ==

== ENCOUNTER 2021-09-22 09:50 | Day surgery (SDC) | payer OTHER | END 2021-09-22 10:29 | disposition home or self-care (01) | LOC: ATC 09:50 | DX: T81.49XA Infection following a procedure, other surgical site, initial encounter (principal); B95.62 Methicillin resistant Staphylococcus aureus infection as the cause of diseases classified elsewhere; Y83.8 Other surgical procedures as the cause of abnormal reaction of the patient, or of later complication, without mention of misadventure at the time of the procedure; I10 Essential (primary) hypertension; Z79.899 Other long term (current) drug therapy | CPT/HCPCS: 96365; J0878 ==

== ENCOUNTER 2021-09-23 02:21 | Day surgery (SDC) | payer OTHER | END 2021-09-23 10:27 | disposition home or self-care (01) | LOC: ATC 02:21 | DX: T81.41XA Infection following a procedure, superficial incisional surgical site, initial encounter (principal); B95.62 Methicillin resistant Staphylococcus aureus infection as the cause of diseases classified elsewhere; I10 Essential (primary) hypertension; M10.9 Gout, unspecified; Y83.8 Other surgical procedures as the cause of abnormal reaction of the patient, or of later complication, without mention of misadventure at the time of the procedure | CPT/HCPCS: 96365; J0878 ==

== ENCOUNTER 2021-09-24 01:50 | Day surgery (SDC) | payer OTHER | END 2021-09-24 10:40 | disposition home or self-care (01) | LOC: ATC 01:50 | DX: T81.41XA Infection following a procedure, superficial incisional surgical site, initial encounter (principal); B95.62 Methicillin resistant Staphylococcus aureus infection as the cause of diseases classified elsewhere; I10 Essential (primary) hypertension; M10.9 Gout, unspecified; Y83.8 Other surgical procedures as the cause of abnormal reaction of the patient, or of later complication, without mention of misadventure at the time of the procedure | CPT/HCPCS: J0878 ==

== ENCOUNTER 2021-09-25 02:51 | Day surgery (SDC) | payer OTHER | END 2021-09-25 10:27 | disposition home or self-care (01) | LOC: ATC 02:51 | DX: T81.49XA Infection following a procedure, other surgical site, initial encounter (principal); B95.62 Methicillin resistant Staphylococcus aureus infection as the cause of diseases classified elsewhere; Y83.8 Other surgical procedures as the cause of abnormal reaction of the patient, or of later complication, without mention of misadventure at the time of the procedure; I10 Essential (primary) hypertension; Z79.899 Other long term (current) drug therapy | CPT/HCPCS: J0878 ==

== ENCOUNTER 2021-09-27 00:51 | Day surgery (SDC) | payer OTHER | END 2021-09-27 10:45 | disposition home or self-care (01) | LOC: ATC 00:51 | DX: T81.49XA Infection following a procedure, other surgical site, initial encounter (principal); B95.62 Methicillin resistant Staphylococcus aureus infection as the cause of diseases classified elsewhere; Y83.8 Other surgical procedures as the cause of abnormal reaction of the patient, or of later complication, without mention of misadventure at the time of the procedure; I10 Essential (primary) hypertension; Z79.899 Other long term (current) drug therapy | CPT/HCPCS: 96374; J0878 ==

== ENCOUNTER 2021-11-27 11:16 | Emergency (ER) | payer OTHER ==
[~2021-11-27] VITALS: Ht 180.3 cm; Wt 108.9 kg
== END 2021-11-27 12:30 | disposition home or self-care (01) ==
LOC: ER 11:16
DX: M25.511 Pain in right shoulder (principal); I10 Essential (primary) hypertension; F17.220 Nicotine dependence, chewing tobacco, uncomplicated; Z79.899 Other long term (current) drug therapy; X50.3XXA Overexertion from repetitive movements, initial encounter
CPT/HCPCS: 73030; 99283-25

== ENCOUNTER 2022-04-16 13:28 | Emergency (ER) | payer OTHER ==
[~2022-04-16] VITALS: Ht 180.3 cm; Wt 99.8 kg
[2022-04-16 14:25] LABS: BASOPHILS ABSOLUTE AUTO 0.04 K/mm3 (0.00-0.23); BASOPHILS PERCENT AUTO 0 % (0-2); EOSINOPHILS ABSOLUTE AUTO 0.08 K/mm3 (0.00-0.68); EOSINOPHILS PERCENT AUTO 1 % (0-6); Hematocrit 46.1 % (37.0-53.0); Hemoglobin 15.7 g/dL (13.5-17.5); IMMATURE GRAN ABSOLUTE AUTO 0.03 K/mm3 (0.00-0.10); IMMATURE GRAN PERCENT AUTO 0 % (0-1); LYMPHOCYTES ABSOLUTE AUTO 1.92 K/mm3 (0.84-5.20); LYMPHOCYTES PERCENT AUTO 20 % (21-46); MONOCYTES PERCENT AUTO 5 % (4-13); Mean Corpuscular HGB 29.8 pg (26.0-34.0); Mean Corpuscular HGB Conc 34.1 g/dL (31.5-36.5); Mean Corpuscular Volume 88 fL (80-100); Mean Platelet Volume 10.2 fL (9.1-12.4); NEUTROPHILS ABSOLUTE AUTO 7.18 K/mm3 (1.96-9.15); NEUTROPHILS PERCENT AUTO 74 % (41-73); Platelet Count 248 K/mm3 (150-400); RDW Coefficient Variation 14.3 % (11.7-14.2); RDW Standard Deviation 45.9 fL (35.1-46.3); Red Blood Cell Count 5.26 M/mm3 (4.30-5.90); White Blood Cell Count 9.75 K/mm3 (4.00-11.30)
[2022-04-16 14:44] LABS: Albumin, Blood 3.8 g/dL (3.4-5.0); Bilirubin, Total 0.8 mg/dL (0.1-1.0); Bun/Creatinine Ratio 15.4 (12.0-20.0); C-REACTIVE PROTEIN, EXT RANGE 0.826 mg/dL (0.000-0.300); Calcium, Blood 8.9 mg/dL (8.5-10.1); Creatinine, Blood 0.78 mg/dL (0.60-1.20); Globulin, Blood 3.7 g/dL (2.2-4.0); Total Protein, Blood 7.5 g/dL (6.4-8.2)
== END 2022-04-16 16:36 | disposition left against medical advice (07) ==
LOC: ER 13:28
PROVIDERS: Physician Assistant
DX: K92.0 Hematemesis (principal); R07.9 Chest pain, unspecified; Z53.21 Procedure and treatment not carried out due to patient leaving prior to being seen by health care provider
CPT/HCPCS: 71046; 80053; 85025; 86140

== ENCOUNTER 2022-12-19 13:46 | Inpatient (IN) | payer OTHER ==
[~2022-12-19] VITALS: Ht 182.9 cm; Wt 87.0 kg
[2022-12-19] VITALS (27 sets, daily range): BP systolic 75–139; BP diastolic 55–85
[2022-12-19 14:40] LABS: Source, Urine Foley catheter
[2022-12-19 14:43] LABS: BASOPHILS ABSOLUTE AUTO 0.02 K/mm3 (0.00-0.23); BASOPHILS PERCENT AUTO 0 % (0-2); EOSINOPHILS ABSOLUTE AUTO 0.02 K/mm3 (0.00-0.68); EOSINOPHILS PERCENT AUTO 0 % (0-6); Hemoglobin 11.4 g/dL (13.5-17.5); IMMATURE GRAN ABSOLUTE AUTO 0.37 K/mm3 (0.00-0.10); IMMATURE GRAN PERCENT AUTO 2 % (0-1); LYMPHOCYTES ABSOLUTE AUTO 0.45 K/mm3 (0.84-5.20); LYMPHOCYTES PERCENT AUTO 3 % (21-46); MONOCYTES ABSOLUTE AUTO 1.36 K/mm3 (0.16-1.47); MONOCYTES PERCENT AUTO 8 % (4-13); Mean Corpuscular HGB 28.8 pg (26.0-34.0); Mean Corpuscular HGB Conc 30.8 g/dL (31.5-36.5); Mean Corpuscular Volume 93 fL (80-100); Mean Platelet Volume 9.3 fL (9.1-12.4); NEUTROPHILS ABSOLUTE AUTO 15.86 K/mm3 (1.96-9.15); NEUTROPHILS PERCENT AUTO 88 % (41-73); NRBC ABSOLUTE 0.03 K/mm3 (0.00-0.02); NRBC Auto 0.2 /100 WBC (0.0-0.2); Platelet Count 315 K/mm3 (150-400); RDW Coefficient Variation 16.6 % (11.7-14.2); RDW Standard Deviation 57.3 fL (35.1-46.3); Red Blood Cell Count 3.96 M/mm3 (4.30-5.90); White Blood Cell Count 18.08 K/mm3 (4.00-11.30)
[2022-12-19 14:48] LABS: Appearance, Urine Clear (Clear); Bilirubin, Urine Neg (Neg); Blood, Urine 4+ (Neg); Color, Urine Yellow (P-Yellow); Glucose Qualitative, Urine Neg (Neg); Ketones, Urine Neg (Neg); Leukocyte Esterase, Urine Neg (Neg); Nitrite, Urine Neg (Neg); Protein, Urine 3+ (Neg); Urobilinogen, Urine NORM (Normal)
[2022-12-19 14:59] LABS: Albumin, Blood 2.4 g/dL (3.4-5.0); Albumin/Globulin Ratio 0.6 (0.8-1.8); Bilirubin, Total 0.4 mg/dL (0.1-1.0); Bun/Creatinine Ratio 17.4 (12.0-20.0); Calcium, Blood 8.7 mg/dL (8.5-10.1); Creatinine, Blood 1.55 mg/dL (0.60-1.20); Globulin, Blood 4.3 g/dL (2.2-4.0); Potassium, Blood 4.6 mmol/L (3.5-5.5); Total Protein, Blood 6.7 g/dL (6.4-8.2)
[2022-12-19 15:07] LABS: Bacteria Few /hpf; Renal Epithelial Rare /hpf (0-Rare); Squamous Epithelial Cells Rare /hpf (Few); White Blood Cells, Urine 0-2 /hpf (0-5)
[2022-12-19 15:12] LABS: International Normalized Ratio 1.21; Prothrombin Time Results 12.6 Sec (9.7-11.5)
[2022-12-19 15:57] LABS: PCO2 Arterial 65.1 mmHg (35-45); PO2 Arterial 50.3 mmHg (80-100)
[2022-12-19 15:58] LABS: pH Blood Arterial 7.24 (7.35-7.45)
[2022-12-19 17:04] LABS: Influenza A, PCR NEGATIVE (NEGATIVE); Influenza B, PCR NEGATIVE (NEGATIVE); Resp Syncytial Virus, PCR NEGATIVE (NEGATIVE); SARS-Cov-2 (COVID-19) PCR, MMC NEGATIVE (NEGATIVE)
--- NOTE | 2022-12-19 18:38 | NUR ---
ARRIVAL TO ICU PT ARRIVES TO ICU AT 1625 FOR RESP FAILURE. REPORT FROM SOFI. PT ARRIVES INTUBATED AND SEDATED. VENT SETTINGS AC/VC 16/500/8/90%. LUNGS COARSE THROUGHOUT. SMALL AMOUNT OF PINK SPUTUM FROM ETT. 8.0/25 AT GUMS. PT OPENS EYES SPONT, FOLLOWS COMMANDS, MAEW. GRIMACES c CARE, TRIES TO SIT UP. REORIENTS EASILY. RESTRAINTS FOR SAFETY. PROPOFOL FOR SEDATION. PT DENIES PAIN. LEVO STARTED FOR MAP>65. SR, RATE 80'S. BLE PALE. ABD ROUND, SOFT, NON TENDER. BT HYPOACTIVE. OGT TO LIS. PICC PLACED TO ABBEY. HERB PATENT, DRAINING CLEAR JESSICA URINE TO GRAVITY. WILL CONTINUE TO MONITOR UNTIL REPORT TO ONCOMING NURSE.
[2022-12-19 20:14] LABS: Acinetobacter baumannii DNA Not Detected copy/mL (NOT DETECT); Enterobacter cloacae DNA Not Detected copy/mL (NOT DETECT); Escherichia coli DNA Not Detected copy/mL (NOT DETECT); Haemophilus influenzae DNA Not Detected copy/mL (NOT DETECT); Klebsiella aerogenes DNA Not Detected copy/mL (NOT DETECT); Klebsiella oxytoca DNA Not Detected copy/mL (NOT DETECT); Klebsiella pneumoniae DNA Not Detected copy/mL (NOT DETECT); Moraxella catarrhalis DNA Not Detected copy/mL (NOT DETECT); Proteus sp DNA Not Detected copy/mL (NOT DETECT); Pseudomonas aeruginosa DNA Not Detected copy/mL (NOT DETECT); Serratia marcescens DNA Not Detected copy/mL (NOT DETECT); Staphylococcus aureus DNA Not Detected copy/mL (NOT DETECT); Streptococcus agalactiae DNA Not Detected copy/mL (NOT DETECT); Streptococcus pneumoniae DNA Not Detected copy/mL (NOT DETECT); Streptococcus pyogenes DNA Not Detected copy/mL (NOT DETECT)
[2022-12-19 20:15] LABS: Adenovirus DNA Not Detected (NOT DETECT); Chlamydia pneumonia Not Detected (NOT DETECT); Human Coronavirus RNA Not Detected (NOT DETECT); Human Metapneumovirus RNA Not Detected (NOT DETECT); Influenza virus A RNA Not Detected (NOT DETECT); Influenza virus B RNA Not Detected (NOT DETECT); Legionella pneumophila Not Detected (NOT DETECT); Mycoplasma pneumoniae Not Detected (NOT DETECT); Parainfluenza virus RNA Not Detected (NOT DETECT); Respiratory syncytial Vir RNA Not Detected (NOT DETECT); Rhinovirus+Enterovirus RNA Not Detected (NOT DETECT)
[2022-12-19] MEDS ORDERED: ALBU90OI INH (21:02)
[2022-12-19] MEDS ORDERED: AZIT500 PO (21:03)
[2022-12-19] MEDS ORDERED: CYCL10 PO (21:04)
[2022-12-19] MEDS ORDERED: DONEPEZIL HCL10 MG PO (21:04)
[2022-12-19] MEDS ORDERED: Prozac40 MG PO (21:05)
[2022-12-19] MEDS ORDERED: GABA300 PO (21:05)
[2022-12-19] MEDS ORDERED: LORA10ER PO (21:06)
[2022-12-19] MEDS ORDERED: Norco 5-325 Ta1 EACH PO (21:06)
[2022-12-19] MEDS ORDERED: LEVO750 PO (21:06)
[2022-12-19] MEDS ORDERED: MEMA10 PO (21:07)
[2022-12-19] MEDS ORDERED: METO100ER PO (21:07)
[2022-12-19] MEDS ORDERED: POTA10T PO (21:08)
[2022-12-19] MEDS ORDERED: MONT10T PO (21:08)
[2022-12-19] MEDS ORDERED: Prednisone10 MG PO (21:09)
--- NOTE | 2022-12-19 21:17 | NUR ---
ASSUMED CARE AT 1900 PATIENT IS INTUBATED AND SEDATED ON PROPOFOL. OPENS EYES TO VERBAL, NODS YES/NO AND FOLLOWS SIMPLE COMMANDS. MEDICATED FOR PAIN AND ANXIETY. 02 SATS 95% ON VENT AC VC 20/500/8/60%, RR 20, SUCTIONING THICK BLAIR FROM ETT. HR SR 70s, BP HYPOTENSIVE, LEVOPHED INFUSING TO MAINTAIN MAP >65. TEMP ESTEVEZ PATENT AND DRAINING CLEAR YELLOW TO GRAVITY. IO REMOVED FROM LEFT CHANEY, TEGADERM IN PLACE. PATIENT REPOSITIONED. CALLED MOTHER TO CONFRIM BERT, MOTHER STATES PATIENT HAS NEEDED TO WEAR OXYGEN AT HOME BUT UNSURE OF HOW MUCH. SEE SHIFT ASSESSMENT FOR MORE INFORMATION
[2022-12-20] VITALS (77 sets, daily range): BP systolic 78–133; BP diastolic 54–84
[2022-12-20 03:32] LABS: BASOPHILS ABSOLUTE AUTO 0.01 K/mm3 (0.00-0.23); BASOPHILS PERCENT AUTO 0 % (0-2); EOSINOPHILS PERCENT AUTO 0 % (0-6); Hematocrit 29.9 % (37.0-53.0); Hemoglobin 9.3 g/dL (13.5-17.5); IMMATURE GRAN ABSOLUTE AUTO 0.05 K/mm3 (0.00-0.10); IMMATURE GRAN PERCENT AUTO 1 % (0-1); LYMPHOCYTES ABSOLUTE AUTO 0.27 K/mm3 (0.84-5.20); LYMPHOCYTES PERCENT AUTO 3 % (21-46); MONOCYTES ABSOLUTE AUTO 0.27 K/mm3 (0.16-1.47); MONOCYTES PERCENT AUTO 3 % (4-13); Mean Corpuscular HGB 28.4 pg (26.0-34.0); Mean Corpuscular HGB Conc 31.1 g/dL (31.5-36.5); Mean Corpuscular Volume 91 fL (80-100); Mean Platelet Volume 9.8 fL (9.1-12.4); NEUTROPHILS ABSOLUTE AUTO 8.86 K/mm3 (1.96-9.15); NEUTROPHILS PERCENT AUTO 94 % (41-73); Platelet Count 187 K/mm3 (150-400); RDW Coefficient Variation 16.6 % (11.7-14.2); RDW Standard Deviation 55.5 fL (35.1-46.3); Red Blood Cell Count 3.27 M/mm3 (4.30-5.90); White Blood Cell Count 9.46 K/mm3 (4.00-11.30)
[2022-12-20 03:50] LABS: Albumin, Blood 1.9 g/dL (3.4-5.0); Albumin/Globulin Ratio 0.5 (0.8-1.8); Bilirubin, Total 0.3 mg/dL (0.1-1.0); Bun/Creatinine Ratio 19.7 (12.0-20.0); Calcium, Blood 8.3 mg/dL (8.5-10.1); Creatinine, Blood 1.22 mg/dL (0.60-1.20); Globulin, Blood 3.6 g/dL (2.2-4.0); Potassium, Blood 4.7 mmol/L (3.5-5.5); Total Protein, Blood 5.5 g/dL (6.4-8.2)
--- NOTE | 2022-12-20 06:20 | NUR ---
SHIFT SUMMARY PATIENT REMAINS INTUBATED AND SEDATED ON PROPOFOL, PRN ATIVAN AND FENTANYL GIVEN THROUGH THE NIGHT. PATIENT RESPONDS TO VERBAL STIMULI, NODS YES/NO, FOLLOWS SOME SIMPLE COMMANDS. 02 SATS 95% ON VENT AC VC 20/500/8/50%, RR 20. ISSUES WITH A CUFF LEAK THROUGH THE NIGHT DR. VERA AND RT AWARE, ADJUSTED THE ETT AND BITE BLOCK. HR SR 65, BP HYPOTENSIVE, LEVOPHED INFUSING 2 MCG/MIN. OG TUBE TO LIS 500 MLS GREEN BILE. TEMP ESTEVEZ PATENT AND DRAINING TO GRAVITY, CLEAR YELLOW OUTPUT. IGNITION RISK ASSESSED HOURLY, NO RISK AT THIS TIME.
--- NOTE | 2022-12-20 07:50 | NUR ---
ASSUMED CARE REPORT FROM CARLA MOON AT 0700. PT INTUBATED AND SEDATED. VENT SETTINGS AC/VC 20/500/8/55%. SCANT THICK PINK SECRETIONS FROM ETT. LUNGS CLEAR. PROPOFOL GTT FOR SEDATION. RASS -2. OPENS EYES TO VERBAL STIMULI. FOLLOWS SIMPLE COMMANDS. MAEW. COUGH/GAG/SWALLOW REFLEX PRESENT. SR, RATE 60'S. LEVO GTT FOR MAP>65. OGT TO LIS, GREEN EMESIS OUT. ABD ROUND, SOFT, NON TENDER. BT X 4. ESTEVEZ PATENT, STRICT I&O. CLEAR YELLOW URINE OUT. PICC TO LUE, DRESSING TO BE CHANGED THIS SHIFT. PT LIMITED CODE, NO CPR. MONITORED FOR IGNITION RISKS q1 HR. WILL CONTINUE TO MONITOR.
[2022-12-20 11:47] LABS: Triglycerides 165 mg/dL (30-160)
[2022-12-20 13:03] LABS: Magnesium, Blood 1.9 mg/dL (1.6-2.4); Phosphorus, Blood 3.2 mg/dL (2.5-4.9)
[2022-12-20 13:16] LABS: PCO2 Arterial 42 mmHg (35-45); PO2 Arterial 62.1 mmHg (80-100); pH Blood Arterial 7.45 (7.35-7.45)
--- NOTE | 2022-12-20 17:06 | NUR ---
SHIFT SUMMARY PT REMAINS INTUBATED AND SEDATED. VENT SETTINGS AC/VC 20/500/8/70% POST BRONCH, PLAN TO TITRATE BACK TO 50% IF TOLERATED. BRONCH THIS SHIFT, SPECIMEN SENT TO LAB, NO ADVERSE EVENTS. LUNGS CLEAR, SCANT THIN CLEAR SECRETIONS FROM ETT. PROPOFOL GTT FOR SEDATION, RASS -2, FENTANYL PRN FOR PAIN. COUGH/GAG/SWALLOW REFLEX PRESENT. FOLLOWS SIMPLE COMMANDS. NODS HEAD TO YES/NO QUESTIONS. MAEW. SR, RATE 70'S. BP STABLE. LEVO GTT TITRATED OFF THIS SHIFT. TUBE FEEDS STARTED. VHP, GOAL 50 ML/HR c 30 ML FLUSH q4HR. ABD ROUND, SOFT, NON TENDER. BT X 4. ESTEVEZ PATENT, DRAINING CLEAR YELLOW URINE TO GRAVITY. PICC DRESSING CHANGED THIS SHIFT. FAMILY AT BEDSIDE, UPDATED ON CONDITION AND PLAN OF CARE.
--- NOTE | 2022-12-20 20:55 | NUR ---
ASSUMED CARE PT APPEARS A&O; NODDING/SHAKING HEAD AND FOLLOWING COMMANDS APPROPRIATELY. PT CONFIRMS HE KNOW'S THAT HE'S IN THE HOSPITAL/INTUBATED AND WHY HE IS. ABLE TO MOVE ALL EXTREMITIES. PROPOFOL TITRATING PER ORDER (SEE FLOWSHEET). 20/500/8/50% SPO2 >92%. MAP >65;HR NSR 80-90'S. ESTEVEZ CATHETER PATENT AND DRAINING TO GRAVITY. PT INITIALLY NODDED HEAD WHEN ASKED IF COMFORTABLE, BUT BEGAN TO COUGH AND PULL AT RESTRAINTS. CONFIRMED THAT HE WAS IN PAIN AND WAS BEGINNING TO FEEL ANXIOUS. MEDICATED PER EMAR. PT IS NOW RESTING QUIETLY AND CONTINUES TO OPEN EYES SPONTANEOUSLY.
[2022-12-21] VITALS (38 sets, daily range): BP systolic 88–161; BP diastolic 54–97
[2022-12-21 03:03] LABS: BASOPHILS ABSOLUTE AUTO 0.01 K/mm3 (0.00-0.23); BASOPHILS PERCENT AUTO 0 % (0-2); EOSINOPHILS PERCENT AUTO 0 % (0-6); Hematocrit 29.6 % (37.0-53.0); Hemoglobin 9.2 g/dL (13.5-17.5); IMMATURE GRAN ABSOLUTE AUTO 0.07 K/mm3 (0.00-0.10); IMMATURE GRAN PERCENT AUTO 1 % (0-1); LYMPHOCYTES ABSOLUTE AUTO 0.19 K/mm3 (0.84-5.20); LYMPHOCYTES PERCENT AUTO 1 % (21-46); MONOCYTES PERCENT AUTO 3 % (4-13); Mean Corpuscular HGB 28.6 pg (26.0-34.0); Mean Corpuscular HGB Conc 31.1 g/dL (31.5-36.5); Mean Corpuscular Volume 92 fL (80-100); Mean Platelet Volume 9.3 fL (9.1-12.4); NEUTROPHILS ABSOLUTE AUTO 12.71 K/mm3 (1.96-9.15); NEUTROPHILS PERCENT AUTO 95 % (41-73); Platelet Count 192 K/mm3 (150-400); RDW Coefficient Variation 16.6 % (11.7-14.2); RDW Standard Deviation 55.8 fL (35.1-46.3); Red Blood Cell Count 3.22 M/mm3 (4.30-5.90); White Blood Cell Count 13.38 K/mm3 (4.00-11.30)
[2022-12-21 03:41] LABS: Bun/Creatinine Ratio 25.8 (12.0-20.0); Calcium, Blood 8.5 mg/dL (8.5-10.1); Creatinine, Blood 1.2 mg/dL (0.60-1.20)
--- NOTE | 2022-12-21 06:34 | NUR ---
SHIFT SUMMARY PT RESTED QUIETLY FOR MOST OF NIGHT W/ ONE INCIDENCE OF AGITATION DURING THE MORNING AND NODDED HEAD WHEN ASKED IF PT WAS IN PAIN/FEELING ANXIOUS. VITAL SIGNS HAVE REMAINED WNL W/ SOME SOFT PRESSURES THIS AM. OTHERWISE NO ACUTE EVENTS. ESTEVEZ CATHETER IS PATENT AND DRAINING TO GRAVITY.
--- NOTE | 2022-12-21 07:46 | NUR ---
ASSUMED CARE BEDSIDE REPORT FROM NUVIA MOON AT 0700. PT INTUBATED AND SEDATED. VENT SETTINGS AC/VC 20/500/6/45%. LUNGS CLEAR, SMALL THIN CLEAR SECRETIONS FROM ETT. PROPOFOL GTT FOR SEDATION, RASS -2, TITRATING DOWN FOR SBT AT THIS TIME. FOLLOWS SIMPLE COMMANDS. NODS HEAD TO YES/NO QUESTIONS. SR ON MONITOR, RATE 80'S. BP STABLE. PT P/W/D. NO EDEMA NOTED. TUBE FEEDS AT GOAL, TOLERATING WELL. ESTEVEZ PATENT, DRAINING CLEAR YELLOW URINE TO GRAVITY. PICC TO LUE, DRESSING C/D/I. WILL CONTINUE TO MONITOR.
--- NOTE | 2022-12-21 09:28 | NUR ---
EXTUBATION PT ON SPONT 5/5/45% SINCE 814, PROPOFOL TITRATED OFF. PT FOLLOWS COMMANDS. CALM AND COOPERATIVE. PT EXTUBATED AT 0856. PLACED ON AIRVO 60L/60%. BREATHING TREATMENT GIVEN BY RT. LUNGS CLEAR OTHER THAN LLL, COARSE AND DIM. STRONG COUGH. MINIMAL SECRETIONS. PT ABLE TO SPEAK IN WEAK VOICE. WILL MONITOR CLOSELY.
--- NOTE | 2022-12-21 17:31 | NUR ---
SHIFT SUMMARY/CODE STATUS CHANGE PT EXTUBATED THIS SHIFT. SEE PREVIOUS NOTE. O2 SATS LABILE. PT CURRENTLY HAS AIRVO 55L/60% FIO2. HAS ALTERNATED c OXYMASK 8-15L. PT TOLERATING AIRVO AT THIS TIME. HAS COMPLAINED ABOUT PRESSURES PREVIOUSLY. WHEN PT REMOVED O2, DESATS QUICKLY. LUNGS CLEAR IN UPPER LOBES, DECREASED IN BASES, WORSE ON L SIDE. NON PRODUCTIVE OCCASIONAL COUGH. ENCOURAGED COUGH AND DEEP BREATHING. PT PASSED BEDSIDE SWALLOW TEST BUT KEPT NPO D/T O2 REQUIREMENTS. A&OX 3. FOLLOWS COMMANDS. SR, RATE 80-110'S. BP STABLE. ESTEVEZ REMOVED. PICC REMAINS IN PLACE. PT HAD MULTIPLE BMS THIS SHIFT. UP TO CHAIR c ONE PERSON ASSIST. TOLERATED WELL. WILL CONTINUE TO MONITOR UNTIL REPORT TO ONCOMING NURSE. CODE STATUS VERIFIED CODE STATUS c PT. PT STATES HE WANTS CPR IF NEEDED. PLACED ORDER FOR FULL CODE.
[2022-12-22] VITALS (24 sets, daily range): BP systolic 116–151; BP diastolic 79–101
[2022-12-22 05:35] LABS: BASOPHILS ABSOLUTE AUTO 0.01 K/mm3 (0.00-0.23); BASOPHILS PERCENT AUTO 0 % (0-2); EOSINOPHILS PERCENT AUTO 0 % (0-6); Hematocrit 35.5 % (37.0-53.0); IMMATURE GRAN ABSOLUTE AUTO 0.07 K/mm3 (0.00-0.10); IMMATURE GRAN PERCENT AUTO 1 % (0-1); LYMPHOCYTES ABSOLUTE AUTO 0.37 K/mm3 (0.84-5.20); LYMPHOCYTES PERCENT AUTO 2 % (21-46); MONOCYTES ABSOLUTE AUTO 0.49 K/mm3 (0.16-1.47); MONOCYTES PERCENT AUTO 3 % (4-13); Mean Corpuscular HGB 28.4 pg (26.0-34.0); Mean Corpuscular Volume 92 fL (80-100); Mean Platelet Volume 9.1 fL (9.1-12.4); NEUTROPHILS ABSOLUTE AUTO 14.41 K/mm3 (1.96-9.15); NEUTROPHILS PERCENT AUTO 94 % (41-73); Platelet Count 210 K/mm3 (150-400); RDW Coefficient Variation 16.9 % (11.7-14.2); Red Blood Cell Count 3.87 M/mm3 (4.30-5.90); White Blood Cell Count 15.35 K/mm3 (4.00-11.30)
[2022-12-22 05:57] LABS: Bun/Creatinine Ratio 28.3 (12.0-20.0); Calcium, Blood 9.5 mg/dL (8.5-10.1); Creatinine, Blood 1.06 mg/dL (0.60-1.20); Magnesium, Blood 2.1 mg/dL (1.6-2.4); Phosphorus, Blood 3.1 mg/dL (2.5-4.9); Potassium, Blood 4.2 mmol/L (3.5-5.5)
--- NOTE | 2022-12-22 06:38 | NUR ---
SHIFT SUMMERY PT IS ALERT AND ORIENTED X4, UP W/ONE PERSON ASSIST TO CHAIR AND BEDSIDE COMMODE. PT DOES DESAT ON AIRVO W/ACTIVITY BUT HAS RECOVERED W/IN 5 MINUTES WITHOUT HAVING ACUTE DISTRESS. PT HAS BEEN SR-ST ON THE ROAD OILER W/BP WNL. HE HAS VOIDED IN THE URINAL AND HAS HAD A BM IN THE BEDSIDE COMMODE. HE HAS HAD NO ACUTE DISTRESS OVERNIGHT OR CHANGES TO PLAN OF CARE.
--- NOTE | 2022-12-22 18:11 | NUR ---
DIANE HAS BEEN UP IN THE RECLINER FOR THE MAJORITY OF THE DAY. HE HAS BEEN DECREASED ON THE % OF OXYGEN HE IS RECEIVING AND HE IS DOING BETTER AT SOME ACTIVITY ie USING THE URINAL, WITHOUT DROPPING HIS SATS. HE HAS EATEN WELL AND RETURNED TO HIS HOME MEDICATION REGIME. HIS PAIN HAS DECREASED T/O THE DAY AND HE HAS EXPRESSED FEELING BETTER. HE CONTINUES TO BE ABLE TO MAKE HIS NEEDS KNOWN.
[2022-12-23] VITALS (8 sets, daily range): BP systolic 91–122; BP diastolic 61–86
[2022-12-23 04:35] LABS: BASOPHILS ABSOLUTE AUTO 0.01 K/mm3 (0.00-0.23); BASOPHILS PERCENT AUTO 0 % (0-2); EOSINOPHILS PERCENT AUTO 0 % (0-6); Hematocrit 35.7 % (37.0-53.0); Hemoglobin 10.9 g/dL (13.5-17.5); IMMATURE GRAN ABSOLUTE AUTO 0.06 K/mm3 (0.00-0.10); IMMATURE GRAN PERCENT AUTO 0 % (0-1); LYMPHOCYTES ABSOLUTE AUTO 0.29 K/mm3 (0.84-5.20); LYMPHOCYTES PERCENT AUTO 2 % (21-46); MONOCYTES ABSOLUTE AUTO 0.65 K/mm3 (0.16-1.47); MONOCYTES PERCENT AUTO 4 % (4-13); Mean Corpuscular HGB 28.4 pg (26.0-34.0); Mean Corpuscular HGB Conc 30.5 g/dL (31.5-36.5); Mean Corpuscular Volume 93 fL (80-100); Mean Platelet Volume 9.4 fL (9.1-12.4); NEUTROPHILS ABSOLUTE AUTO 13.78 K/mm3 (1.96-9.15); NEUTROPHILS PERCENT AUTO 93 % (41-73); Platelet Count 202 K/mm3 (150-400); RDW Coefficient Variation 16.9 % (11.7-14.2); RDW Standard Deviation 56.9 fL (35.1-46.3); Red Blood Cell Count 3.84 M/mm3 (4.30-5.90); White Blood Cell Count 14.79 K/mm3 (4.00-11.30)
[2022-12-23 04:51] LABS: Calcium, Blood 9.4 mg/dL (8.5-10.1); Magnesium, Blood 1.9 mg/dL (1.6-2.4); Potassium, Blood 4.6 mmol/L (3.5-5.5)
--- NOTE | 2022-12-23 05:28 | NUR ---
SHIFT SUMMERY PT IS ON AIRVO 45L/50% FIO2. PT OXYGEN SAT >90% UNLESS PT IS ACTIVE IN ANY WAY. HE HAS LITTLE TO NO RESERVE AND WILL DESAT USING THE URINAL IN BED TO THE LOW 80S. HE WILL RECOVER IN A FEW MINUTES AND DOES NOT EXPERIENCE DISTRESS WHEN THIS OCCURS. HE HAS BEEN SR/SB ON THE RAGMAN, BP WNL. HE HAS BEEN UP TO THE CHAIR FOR SEVERAL HOURS THIS SHIFT AND HAS RESTED WELL IN WHILE IN BED. HE IS ALERT AND ORIENTED X4 AND ABLE TO GO TO CHAIR/BEDSIDE COMMODE W/1 PERSON ASSIST. PRN PAIN MEDS GIVEN PER EMAR FOR CHRONIC PAIN NEEDED PER PATIENT. THERE HAS BEEN NO ACUTE CHANGES OR ACUTE EPISODES OF DISTRESS THIS SHIFT. HOURLY IGNITION ROUNDS FOUND PT TO NOT BE RISK OF IGNITION.
--- NOTE | 2022-12-23 08:38 | NUR ---
CARE OF PT ASSUMED AT 0700. PT INITIALLY SLEEPING, AWAKENS TO VOICE. PT NOW AWAKE AND ALERT EATING BREAKFAST. PT C/O HEADACHE AND JOINT PAIN 11/25, HE FEELS THE JOINT PAIN STARTED W IMMUNOTHERAPY. PT STATES NORCO WORKS BUT DOESNT QUITE LAST LONG ENOUGH. PT'S SATS >90% ON AIRVO 45L/50%. PT DOES DESATURATE WITH ANY EXERTION TO MID 80'S, BUT DOES NOT APPEARED LABORED WHEN HE DESATURATES, PT ALSO DENIES SOB.
[2022-12-23 12:37] LABS: Magnesium, Blood 2.3 mg/dL (1.6-2.4); Phosphorus, Blood 3.4 mg/dL (2.5-4.9)
--- NOTE | 2022-12-23 18:02 | NUR ---
PT UP IN CHAIR FOR MAJORITY OF SHIFT. AIRVO TITRATED DOWN TO 45L/45%, SATS REMAIN >90%. PT REMAINS HYPOTENSIVE, ASYMPTOMATIC W MAPS >65. DR PINEDO AND DR PARKER IN TO SEE PT EARLIER THIS AM. [facility]CO GIVEN Q4HRS FOR CHRONIC JOINT PAIN RELATED TO IMMUNOTHERAPY. DR PINEDO SPOKE W DR DURAN TODAY (DR JARA UNAVAILABLE TODAY), DR DURAN RECOMMENDED HOLDING IMMUNOTHERAPY FOR NOW; PT WAS CONCERNED BECAUSE HE HAS MISSED ONE DOSE AND HIS NEXT DOSE WAS SCHEDULED FOR TOMORROW. PT AND PT'S VISITOR EDUCATED ON IGNITION RISKS AND O2, PT AND VISITOR VERBALIZE UNDERSTANDING. HOURLY ROUNDING COMPLETED ON IGNITION RISKS/SOURCE.
[2022-12-24] VITALS: BP 130/82
[2022-12-24 04:00] VITALS: BP 100/69
[2022-12-24 04:56] LABS: BASOPHILS ABSOLUTE AUTO 0.01 K/mm3 (0.00-0.23); BASOPHILS PERCENT AUTO 0 % (0-2); EOSINOPHILS ABSOLUTE AUTO 0.04 K/mm3 (0.00-0.68); EOSINOPHILS PERCENT AUTO 0 % (0-6); Hematocrit 35.4 % (37.0-53.0); Hemoglobin 10.8 g/dL (13.5-17.5); IMMATURE GRAN ABSOLUTE AUTO 0.08 K/mm3 (0.00-0.10); IMMATURE GRAN PERCENT AUTO 1 % (0-1); LYMPHOCYTES ABSOLUTE AUTO 0.61 K/mm3 (0.84-5.20); LYMPHOCYTES PERCENT AUTO 4 % (21-46); MONOCYTES ABSOLUTE AUTO 0.98 K/mm3 (0.16-1.47); MONOCYTES PERCENT AUTO 7 % (4-13); Mean Corpuscular HGB 28.3 pg (26.0-34.0); Mean Corpuscular HGB Conc 30.5 g/dL (31.5-36.5); Mean Corpuscular Volume 93 fL (80-100); Mean Platelet Volume 9.4 fL (9.1-12.4); NEUTROPHILS ABSOLUTE AUTO 12.55 K/mm3 (1.96-9.15); NEUTROPHILS PERCENT AUTO 88 % (41-73); Platelet Count 182 K/mm3 (150-400); RDW Coefficient Variation 17.1 % (11.7-14.2); RDW Standard Deviation 57.4 fL (35.1-46.3); Red Blood Cell Count 3.82 M/mm3 (4.30-5.90); White Blood Cell Count 14.27 K/mm3 (4.00-11.30)
[2022-12-24 05:28] LABS: Bun/Creatinine Ratio 36.6 (12.0-20.0); Calcium, Blood 9.2 mg/dL (8.5-10.1); Creatinine, Blood 1.12 mg/dL (0.60-1.20); Potassium, Blood 4.1 mmol/L (3.5-5.5)
--- NOTE | 2022-12-24 05:34 | NUR ---
SHIFT SUMMERY PT REQUIRED INCREASE IN FIO2 DUE TO DESATURATION OVERNIGHT. PT WAS NOT IN DISTRESS AND RECOVERED WITH OXYGEN INCREASE. HE IS ALERT AND ORIENTED X4, AMBULATORY W/ONE PERSON ASSIST. HE HAS BEEEN SR-ST ON THE PEANUT FARMER, BP WNL. HE HAS HAD NO CRITICAL CHANGES OVERNIGHT. HOURLY ROUNDS REVEAL PT IS NOT AN IGNITION RISK AT THIS TIME.
[2022-12-24 08:00] VITALS: BP 105/78
--- NOTE | 2022-12-24 08:45 | NUR ---
CARE OF PT ASSUMED AT 0700. PT AWAKE AND ALERT. PT STATES PAIN IS BETTER THAN YESTERDAY OVERALL,(PAIN TO JOINTS 2ND TO IMMUNOTHERAPY PER PT) AND THAT HE FEELS BETTER TODAY. PT SBA TO CHAIR, PT MINIMALLY DESATURATED DURING TRANSFER, AND SATS RECOVERED QUICKLY. SATS >90% ON AIRVO AT 40L/47%. DR PINEDO AND DR PARKER IN TO SEE PT THIS AM.
--- NOTE | 2022-12-24 10:47 | NUR ---
Spiritual Care Visit. Pt. is awake and sitting up in a recliner when he welcomes my visit. Pt. is pleasant. Facilitated a life review. Listen with interest and empathy to his story. Rapport is established. Pt. displayed evidence of trust and engagement. Prayed for Pt. Pt. verbalized gratitude for the spiritual care visit.
[2022-12-24 12:00] VITALS: BP 110/69
--- NOTE | 2022-12-24 13:07 | NUR ---
Pt sitting in chair wearing O2 via NC. Pt is A&O and reports 5/10 pain in his joints. He reports having this pain since starting chemo therapy. He denies need for pain medication at this time. Pt reports dyspnea is improving and has mild anxiety. Pt reports not being and lives with his mom. He reports having children who live in [place]. Pt reports having a brother and cousins who live local that are supportive. Continued supportive visit and reviewed plan of care. [facility] Research Associate Anni in to assist Pt with starting terminal operator medicade. This RN ended visit. Spoke with Primary RN Shikha and discussed case. Palliative Care will remain available
[2022-12-24 16:43] VITALS: BP 110/78
--- NOTE | 2022-12-24 17:58 | NUR ---
PT OOB TO CHAIR SINCE 0800 THIS AM. PT STATES PAIN OVERALL HAS BEEN BETTER, HAS REQUIRED [facility]CO PRN FOR PAIN. RT PLACED PT ON 15L HIGH FLOW N/C. SATS HAVE AVERAGED RIGHT AROUND 90%, OCC DROPPING TO 88% W MILD EXERTION. PT ASSIST TO TOILET TODAY, FOR A BM W URGENCY. SATS ON THE WAY TO THE TOILET DROPPED TO 50%, PT DID NOT FEEL OVERLY SOB, UNLABORED RESP. WITHIN 3MIN SATS RECOVERED TO 90%. ON THE WAY BACK TO THE CHAIR, SATS DROPPED MINIMALLY TO 87% AND QUICKLY RECOVERED TO >90% ONCE SITTING. LR AT 100CC/HR STARTED THIS AM, BP HAS BEEN IMPROVED T/O SHIFT, HEART RATE HAS BEEN MORE ELEVATED AROUND 110, UP TO 120'S W EXERTION.
[2022-12-24 20:00] VITALS: BP 128/81
--- NOTE | 2022-12-24 20:19 | NUR ---
SPOKE TO TAYLOR KEITA RE PT TACHYCARDIA 110-130S. HE STATED TO CALL THE RESIDENT. SPOKE TO DR CAN, RESIDENT. ORDERS GIVEN.
[2022-12-25] VITALS (7 sets, daily range): BP systolic 96–130; BP diastolic 65–86
[2022-12-25 04:06] LABS: BASOPHILS ABSOLUTE AUTO 0.01 K/mm3 (0.00-0.23); BASOPHILS PERCENT AUTO 0 % (0-2); EOSINOPHILS ABSOLUTE AUTO 0.11 K/mm3 (0.00-0.68); EOSINOPHILS PERCENT AUTO 1 % (0-6); Hematocrit 36.6 % (37.0-53.0); Hemoglobin 11.1 g/dL (13.5-17.5); IMMATURE GRAN ABSOLUTE AUTO 0.12 K/mm3 (0.00-0.10); IMMATURE GRAN PERCENT AUTO 1 % (0-1); LYMPHOCYTES ABSOLUTE AUTO 0.68 K/mm3 (0.84-5.20); LYMPHOCYTES PERCENT AUTO 5 % (21-46); MONOCYTES ABSOLUTE AUTO 0.96 K/mm3 (0.16-1.47); MONOCYTES PERCENT AUTO 7 % (4-13); Mean Corpuscular HGB 28.6 pg (26.0-34.0); Mean Corpuscular HGB Conc 30.3 g/dL (31.5-36.5); Mean Corpuscular Volume 94 fL (80-100); Mean Platelet Volume 9.8 fL (9.1-12.4); NEUTROPHILS ABSOLUTE AUTO 12.64 K/mm3 (1.96-9.15); NEUTROPHILS PERCENT AUTO 87 % (41-73); Platelet Count 181 K/mm3 (150-400); RDW Coefficient Variation 17.2 % (11.7-14.2); RDW Standard Deviation 59.2 fL (35.1-46.3); Red Blood Cell Count 3.88 M/mm3 (4.30-5.90); White Blood Cell Count 14.52 K/mm3 (4.00-11.30)
[2022-12-25 04:22] LABS: Bun/Creatinine Ratio 33.3 (12.0-20.0); Calcium, Blood 9.3 mg/dL (8.5-10.1); Creatinine, Blood 1.02 mg/dL (0.60-1.20); Potassium, Blood 4.2 mmol/L (3.5-5.5)
--- NOTE | 2022-12-25 05:52 | NUR ---
SHIFT SUMMERY PT IS ALERT AND ORIENTED X4. HE HAS BEEN ST-SR ON THE QUALITY ASSURANCE NURSE, BP WNL. PT HAS BEEN ON AIRVO W/VARYING AMOUNTS OF FIO2, DESATURATING TO 68 AT THE LOWEST, RECOVERING W/INCREASED FIO2. PT HAS BEEN AFEBRILE.
--- NOTE | 2022-12-25 07:00 | NUR ---
ASSUMPTION OF CARE PT SITTING ON EDGE OF BED. HE IS ON AIRVO 45L/65%. PT ALERT AND ORIENTED, PARTICIPATES IN CONVERSATION. CALL LIGHT WITHIN REACH. SEE SHIFT ASSESSMENT.
--- NOTE | 2022-12-25 08:30 | NUR ---
UPDATE PT TRANSITIONED TO 15L HFNC BY RT. PT TOLERATING WELL WITH SPO2 >94%. HE REPORTS BREATHING FEELS SIMILAR TO YESTERDAY. C/O DIFFICULTY TAKING A DEEP BREATH AND "IT FEELS HEAVY, LIKE I CAN'T USE ALL MY LUNGS". PT DOES DESAT WITH EXCERTION. C/O INTERMITTENT DIZZINESS THAT HAS BEEN GOING ON FOR A FEW DAYS. PT ALSO IS EXPERIENCING HEAD, BACK AND JOINT PAIN. HE REPORTS HE THINKS JOINT PAIN IS RELATED TO IMMUNOTHERAPY MEDICATION.
--- NOTE | 2022-12-25 16:15 | NUR ---
UPDATE PT IS ON 13L HFNC AND PT TOLERATING WELL. HE CONTINUES TO FEEL IF HE CANNOT FULLY EXPAND HIS LUNGS. PT HAS HAD SOME CLEAR/YELLOW SPUTUM AND OCCASIONALLY DARK BROWN/THICK SPUTUM. PT DOES BECOME SOB WITH ACTIVITY. INCENTIVE SPIROMETER ON BEDSIDE TABLE AND PT USES FREQUENTLY. HE REMAINS ALERT AND ORIENTED WITH PLEASANT AFFECT. PARTICIPATES IN CONVERSATION. HE MOSTLY PERFORMS ADLS INDEPENDENTLY AND USES CALL LIGHT APPROPRIATLEY. HE HAS BEEN SITTING IN THE RECLINER SINCE BREAKFAST. NSR ON MONITOR WITH RATE IN 70S-90S. SBP 90S-120S. PT DENIES CP. HE HAS HAD MULTIPLE LOOSE STOOLS TODAY AND VOIDS WITH THE URINAL. PLAN TO TRANSITION PT TO PCU 12, PT UPDATED ON PLAN OF CARE.
--- NOTE | 2022-12-25 18:30 | NUR ---
TRANSFER UPDATE REPORT RECIEVED FROM ICU NURSE DAYNE AT 1702. PT ARRIVED TO PCU AT 1800 DUE TO WAITING FOR ROOM TO BE CLEANED. PT ARRIVED VIA WHEELCHAIR AND ON 15 HFNC. PT ABLE TO TRANSFER SELF TO AND FROM WHEELCHAIR ON HIS OWN, TOLERATED WELL. PT BELONGINGS BAGGED AND TRNAFERED WITH PT. PT CHART TRANSFERED WITH PT. ONCE TO PCU, PT ORIENTED TO PCU AND ROOM. PT TRANSFERED TO CHAIR ON HIS OWN, TOLERATED WELL. PT A/OX4 AT TIME OF ARRIVAL. PT ASSESSED FOR FIRE IGNITION RISK DEVICES, NONE REPORTED. CALL LIGHT WITHIN REACH.
--- NOTE | 2022-12-25 19:25 | NUR ---
ASSESSMENT/ASSUMED CARE PT SITTING UP IN CHAIR WATCHING TV. SPEECH CLEAR AND APPROP. REPORTS,"NORMAL PAIN/ACHES 6/10 ALL OVER". TO BE MED WITH [facility]CO. PT STATES,"I'M FEELING MUCH BETTER". PT FOLLOWING INSTUCTIONS. LUNGS CLEAR BUT DECREASED IN THE BASES ON 10 LITER HIFLOW O2. RESP EVEN AND NONLABOERED. OCC PRODUCTIVE COUGH. DENIES SOB AT THIS TIME. HEART RATE REGULAR, BP STABLE. DENIES CHEST PAIN OR PRESSURE. BT+ ABD SOFT AND NONTENDER. DENIES N/V. TAKING PO WITHOUT DIFFICULTY. VOIDING CLEAR YELLOW URINE. STEPHON.
[2022-12-26 03:37] VITALS: BP 123/82
[2022-12-26 04:33] LABS: Hematocrit 37.4 % (37.0-53.0); Hemoglobin 11.3 g/dL (13.5-17.5); Mean Corpuscular HGB 28.3 pg (26.0-34.0); Mean Corpuscular HGB Conc 30.2 g/dL (31.5-36.5); Mean Corpuscular Volume 94 fL (80-100); Mean Platelet Volume 10.4 fL (9.1-12.4); Platelet Count 188 K/mm3 (150-400); RDW Coefficient Variation 16.9 % (11.7-14.2); RDW Standard Deviation 57.6 fL (35.1-46.3); Red Blood Cell Count 3.99 M/mm3 (4.30-5.90); White Blood Cell Count 12.97 K/mm3 (4.00-11.30)
[2022-12-26 04:51] LABS: Bun/Creatinine Ratio 29.9 (12.0-20.0); Calcium, Blood 9.5 mg/dL (8.5-10.1); Creatinine, Blood 1.07 mg/dL (0.60-1.20); Potassium, Blood 4.2 mmol/L (3.5-5.5)
--- NOTE | 2022-12-26 05:44 | NUR ---
SHIFT SUMMARY PT SITTING ON EDGE OF BED USING IS AND TAKING DEEP BREATHS. MED WITH NORCO FOR PAIN 11/25 "IN MY JOINTS". PT WITH O2 AT 10 LITERS VIA HIGH FLOW NC. DOING PULM TOILET. MOVING SELF IN BED. UP TO BATHROOM WITH STANDBY ASSIST. PT STATES,"I'M FEELING BETTER TODAY". NO ACUTE CHANGE. REPORT TO ON COMING NURSE
[2022-12-26 07:47] VITALS: BP 104/76
--- NOTE | 2022-12-26 09:56 | NUR ---
Spiritual Care Visit Pt. is awake and sitting up on the side of his bed. Pt. is pleasant, but unsttled at the cause of DSAT with minimal activity. Listen with empathy and a calmin g presence. Pt. is expecting family at any minute. Prayed with Pt. Pt. verbalized gratitude for the spiritual care visit and welcomed this life insurance actuary to return.
--- NOTE | 2022-12-26 10:17 | NUR ---
PT CURRENTLY SITTING AT EOB VISITING WITH VISITORS. PT ON 10L HFNCWITH SATS IN THE 90'S. THERAPY CAME BY TO SEE PT BUT OT HAD VISITORS, THERAPY TO CHECK BACK LATER IN DAY. PT USIN INCENTIVE SPIROMETER PERIODICALLY, SATS DROP TO MID 80'S AT THIS TIME BUT RETURN TO THE 90'S QUICKLY.
[2022-12-26 11:27] VITALS: BP 106/70
[2022-12-26 15:25] VITALS: BP 110/72
--- NOTE | 2022-12-26 17:30 | NUR ---
SHIFT SUMMARY PT A/OX4 AND COOPERATIVE OF CARE. PT ABLE TO EXPRESS NEEDS AND CALLS APPROPIATE. PT HAD EPISODES OF SATS DROPPING TO 80'S WITH EXERTION, NOT ALWAYS A GOOD PLETH THOUGH. PT SATS RETURN TO 90'S QUICKLY ONCE AT REST ON 8-10L HFNC . OTHER VSS THROUGHOUT SHIFT. PT UP IN ROOM TO USE URINAL AT BEDSIDE ULTIPLE TIMES DURING SHIFT , SATS STABLE AT THESE TIMES. PT CONTINUES TO USE INCENTIVE SPIROMETER WITHOU CUES. PT SEEN BY THERAPY TODAY, SATS DROPPED WITH EXERTION AT THIS TIME, SEE THERAPIST NOTES. NO REPORT OF CHEST PAIN/PRESSURE THROUGHOUT SHIFT. PT REPORTED SOB WITH EXERTION, HAD ONE PERIOD OF LIGHT HEADEDNESS WHEN PT REMOVED HFNC TO CHANGE. PT INDEPENDENT IN BED.
[2022-12-26 20:15] VITALS: BP 107/71
[2022-12-26 23:42] VITALS: BP 110/76
[2022-12-27 04:15] VITALS: BP 142/94
[2022-12-27 04:41] LABS: Hematocrit 34.3 % (37.0-53.0); Hemoglobin 10.5 g/dL (13.5-17.5); Mean Corpuscular HGB 28.7 pg (26.0-34.0); Mean Corpuscular HGB Conc 30.6 g/dL (31.5-36.5); Mean Corpuscular Volume 94 fL (80-100); Platelet Count 170 K/mm3 (150-400); RDW Coefficient Variation 16.8 % (11.7-14.2); RDW Standard Deviation 56.7 fL (35.1-46.3); Red Blood Cell Count 3.66 M/mm3 (4.30-5.90); White Blood Cell Count 12.52 K/mm3 (4.00-11.30)
[2022-12-27 06:48] LABS: Bun/Creatinine Ratio 37.3 (12.0-20.0); Calcium, Blood 9.3 mg/dL (8.5-10.1); Creatinine, Blood 1.02 mg/dL (0.60-1.20); Potassium, Blood 4.3 mmol/L (3.5-5.5)
[2022-12-27 07:16] VITALS: BP 112/81
[2022-12-27 12:00] VITALS: BP 114/84
--- NOTE | 2022-12-27 13:44 | NUR ---
Spiritual Care visit. Pt is sitting up in bed and welcomes this appraiser auditor. Pt. displays evidence of being engaged, alert, and aware that he will need to stay in the hospital for one more night. Listen with empathy and interest. Visit was interrupted by a phone call from a family member. Pt. verbalized gratitude for the spiritual care visit.
[2022-12-27 16:48] VITALS: BP 113/50
--- NOTE | 2022-12-27 17:15 | NUR ---
SHIFT SUMMARY: PT ALERT AND ORIENTED X4, ABLE TO FOLLOW COMMANDS AND MAKE NEEDS KNOWN. COOPERATIVE WITH CARE. BP STABLE, HR SR 80'S, AFEBRILE. TITRATED DOWN TO 6L HIFLOW THIS SHIFT. SATS >95% AT REST. DESATS WITH ACTIVITY, AT TIMES NEEDING 10L. RESPIRATIONS EVEN AND UNLABORED AT REST. LUNG SOUNDS DIM WITH CRACKLES. MD AT BEDSIDE THIS AFTERNOON FOR U/S, PT TOLERATED WELL. PT IND IN ROOM, USES URINAL AT BEDSIDE. 1 BM THIS AM. PT CURRENTLY SITTING ON SIDE OF BED EATING DINNER. BED IN LOW, CALL LIGHT IN REACH, WILL REPORT TO ONCOMING RN.
[2022-12-27 19:47] VITALS: BP 116/71
[2022-12-28 00:34] VITALS: BP 108/74
[2022-12-28 04:17] VITALS: BP 114/69
--- NOTE | 2022-12-28 04:51 | NUR ---
SHIFT SUMMARY THIS RN ASSUMED CARE OF PATIENT AT 1900. PT ALERT AND ORIENTED. ABLE TO MAKE NEEDS KNOWN. PT CONTINUES TO NEED 5-6L WHEN AT REST. WITH ACTIVITY PT DESATS TO 70-80'S; RECOVERS SLOWLY. INCREASING O2 TO 7-8L WITH ACTIVITY TO HELP PREVENT DESATTING. BP STABLE. AFEBRILE. SR WITH HR 70'S. PT USING URINAL INDEPENDENTLY AT BEDSIDE. BED IN LOWEST POSITION AND CALL LIGHT WITHIN REACH. THIS RN WILL CONTINUE TO MONITOR UNTIL SHIFT CHANGE AT 0700.
[2022-12-28 08:06] VITALS: BP 112/70
[2022-12-28 14:57] VITALS: BP 124/80
--- NOTE | 2022-12-28 17:31 | NUR ---
SHIFT SUMMARY/TRANSFER OF CARE PT REMAINS ALERT AND ORIENTED X4, ABLE TO FOLLOW COMMANDS AND MAKE NEEDS KNOWN. BP AND HR STABLE. AFEBRILE. PT TITRATED TO 3L NC THIS SHIFT AT REST, DESATS WITH ACTIVITY. PT ABLE TO WORK WITH PHYSICAL THERAPY THIS AFTERNOON, TOLERATED WELL. ABLE TO WALK TO AND FROM BATHROOM IND, USES URINAL AT BEDSIDE. ONE BM THIS MORNING. PT CONTINUING TO DO PHYSICAL THERAPY EXERCISE IN ROOM, OXYGEN SATS >86%. PT TRANSFERRING TO [facility] FLOOR ROOM 338 AFTER DINNER VIA WHEELCHAIR. REPORTS CALLED TO SARAI SHABAZZ.
[2022-12-28 17:50] VITALS: BP 117/74
--- NOTE | 2022-12-28 19:05 | NUR ---
PT ADMITTED TO ROOM 338 AT 1744, WHEELCHAIR, AMBULATED TO BED, STEADY ON FEET. ORIENTED TO ROOM SET UP AND SAFETY. CALL LIGHT IN REACH. SITTING AT EDGE OF BED, PLEASANT AND COMMUNICATIVE. RESP EVEN UNLABORED, HIGH FLOW O2 4L. UP TO 8L FOR ACTIVITY BREIFLY. AUSCULTATED LUNGS, DIM BASES, FAINT CX IN R BASE.
[2022-12-28 20:33] VITALS: BP 131/77
[2022-12-29 03:07] VITALS: BP 100/68
[2022-12-29 07:34] VITALS: BP 113/78
--- NOTE | 2022-12-29 07:52 | NUR ---
SHIFT SUMMARY PT IS ALERT AND ORIENTED X4. REPORTED SLEEPING WELL OVER NIGHT. 4L NC, INCREASE IN O2 WITH AMBULATION. PT REPORTED HAVING NO INCREASE IN WOB WITH AMBULATION AND FEELING MUCH BETTER THIS MORNING. I DID NOT VISUALIZE PT AMBULATE SO I CAN NOT SAY FOR SURE THAT HIS WOB DID NOT INCREASE. TREATED PAIN PER EMAR. NO ACUTE CHANGES OVERNIGHT. BED IS IN THE LOWEST POSITION WITH CALL LIGHT IN REACH. ABLE TO MAKE NEEDS KNOWN.
[2022-12-29] MEDS ORDERED: METO50 PO (13:17)
[2022-12-29] MEDS ORDERED: Prednisone10 MG PO ×2 (13:23→14:17)
--- NOTE | 2022-12-29 20:00 | NUR ---
PT DISCHARGED 1939 WITH INSTRUCTIONS. RX FAXED TO [facility]. DALILA BROUGHT 2 TANKS FOR [facility]. OUT TO PRIVATE CAR VIA W/C. DALILA TO DROP O2 CONCENTRATOR AT PT'S HOME
== END 2022-12-29 16:21 | disposition home or self-care (01) | DRG 871 ==
LOC: ER 13:46 → ICUE 15:25 → PCU 15:25 → ICUE 15:25 → PCU 12-25 18:01 → MEDS 12-28 17:41
PROVIDERS: Emergency Medicine; Family Medicine; Student in an Organized Health Care Education/Training Program; ADMIT Hospitalist
PROC: 0BH17EZ Insertion of Endotracheal Airway into Trachea, Via Natural or Artificial Opening (ICD-10-PCS; principal; 2022-12-19)
PROC: 5A1945Z Respiratory Ventilation, 24-96 Consecutive Hours (ICD-10-PCS; 2022-12-19)
PROC: 3E03329 Introduction of Other Anti-infective into Peripheral Vein, Percutaneous Approach (ICD-10-PCS; 2022-12-19)
PROC: 0T9B70Z Drainage of Bladder with Drainage Device, Via Natural or Artificial Opening (ICD-10-PCS; 2022-12-19)
PROC: 4A133R1 Monitoring of Arterial Saturation, Peripheral, Percutaneous Approach (ICD-10-PCS; 2022-12-19)
PROC: 3E033XZ Introduction of Vasopressor into Peripheral Vein, Percutaneous Approach (ICD-10-PCS; 2022-12-19)
PROC: 0D9670Z Drainage of Stomach with Drainage Device, Via Natural or Artificial Opening (ICD-10-PCS; 2022-12-19)
PROC: 05HY33Z Insertion of Infusion Device into Upper Vein, Percutaneous Approach (ICD-10-PCS; 2022-12-19)
PROC: 5A09457 Assistance with Respiratory Ventilation, 24-96 Consecutive Hours, Continuous Positive Airway Pressure (ICD-10-PCS; 2022-12-19)
PROC: 0BJ08ZZ Inspection of Tracheobronchial Tree, Via Natural or Artificial Opening Endoscopic (ICD-10-PCS; 2022-12-20)
DX: A41.9 Sepsis, unspecified organism (principal); J18.9 Pneumonia, unspecified organism; J96.01 Acute respiratory failure with hypoxia; J96.02 Acute respiratory failure with hypercapnia; N17.9 Acute kidney failure, unspecified; E87.21 Acute metabolic acidosis; C34.90 Malignant neoplasm of unspecified part of unspecified bronchus or lung; E87.0 Hyperosmolality and hypernatremia; Z99.11 Dependence on respirator [ventilator] status; Z20.822 Contact with and (suspected) exposure to COVID-19; R65.20 Severe sepsis without septic shock; E86.0 Dehydration; R41.82 Altered mental status, unspecified; T45.1X5A Adverse effect of antineoplastic and immunosuppressive drugs, initial encounter; R94.31 Abnormal electrocardiogram [ECG] [EKG]; G89.29 Other chronic pain; I48.0 Paroxysmal atrial fibrillation; I95.9 Hypotension, unspecified; N18.9 Chronic kidney disease, unspecified; I12.9 Hypertensive chronic kidney disease with stage 1 through stage 4 chronic kidney disease, or unspecified chronic kidney disease; G43.909 Migraine, unspecified, not intractable, without status migrainosus; M19.90 Unspecified osteoarthritis, unspecified site; Z98.1 Arthrodesis status; Z98.890 Other specified postprocedural states; Z87.891 Personal history of nicotine dependence
CPT/HCPCS: 0241U; 36415; 36569; 36600; 51702; 70450; 70496; 70498; 71045; 80048; 80053; 81001; 82803; 82947; 83605; 83735; 84100; 84145; 84478; 84484; 85025; 85027; 85610; 85730; 87040; 87070; 87205; 87633; 88108; 88312; 93005; 93010; 93306; 94002; 94003; 94640; 94660; 94664; 94760; 94761; 94762; 96365-59; 96366-59; 97110; 97116; 97161; 97530; 99291-25; A9270; C1751; C9113; J0330; J0692; J0696; J1650; J2060; J2250; J2704; J2920; J3010; J3370; J7030; J7050; J7060; J7120; J7512; Q9967